=== PATIENT | female | born 1985 | race Caucasian/White ===

== ENCOUNTER → 2017-11-24 18:32 | Outpatient (CLI) | payer OTHER, SELFPAY ==
[2017-11-28 11:07] LABS: HPV APTIMA, High Risk Negative (Negative)
== END ==
PROVIDERS: Visit Provider Nurse Practitioner Women's Health
DX: Z12.4 Encounter for screening for malignant neoplasm of cervix (principal)
CPT/HCPCS: 88175; G0145

== ENCOUNTER → 2017-12-01 14:16 | Outpatient (CLI) | payer OTHER, SELFPAY ==
[2017-12-01 15:45] LABS: Thyroid Stim Hormone (TSH) 0.99 uIU/mL (0.358-3.74)
[2017-12-02 08:46] LABS: Progesterone Level 8.48 ng/mL (See Comment)
== END ==
PROVIDERS: Visit Provider Nurse Practitioner Women's Health
DX: N97.0 Female infertility associated with anovulation (principal)
CPT/HCPCS: 36415; 84144; 84443

== ENCOUNTER → 2018-03-12 09:24 | Outpatient (CLI) | payer OTHER, SELFPAY ==
[2018-03-12 10:13] LABS: Absolute Lymphocyte Count 2.28 X10^3/ul (0.83-4.51); Absolute Neutrophil Count 11.1 X10^3/uL (2.0-7.7); Basophil# 0.03 X10^3/uL; Basophil% 0.2 % (0-1); Eosinophil# 0.19 X10^3/uL; Eosinophils% 1.3 % (0-5); Hematocrit 41.7 % (37-47); Hemoglobin 14.2 g/dl (12.0-15.0); Lymphocyte # 2.28 X10^3/ul (4.0); Lymphocyte % 15.5 % (19-41); Mean Corp Hgb Conc 34.1 g/gl (32-36); Mean Corpuscular Hgb 31.4 pg (27.0-32.0); Mean Corpuscular Volume 92.3 fL (81-99); Monocyte% 6.8 % (0-10); Neutrophil # 11.13 X10^3/uL (2.7-7.7); Neutrophil % 75.7 % (47-70); Platelet Count 203 K/mm3 (150-450); RBC Distribution Width SD 39.7 fl (35.1-43.9); Red Blood Count 4.52 M/mm3 (4.2-5.4); White Blood Count 14.7 K/mm3 (4.4-11.0)
[2018-03-12 10:16] LABS: POSITIVE COUNT NO; POSITIVE DIFFERENTIAL NO; POSITIVE MORPHOLOGY NO
[2018-03-12 11:21] LABS: HIV - WCH Non-Reactive (Nonreactive); Rubella IgG 13.2 IU/mL
[2018-03-13 09:29] LABS: HEPATITIS B SURFACE AG Negative (Negative)
[2018-03-19 03:58] LABS: Rapid Plasmin Reagin (RPR) NONREACTIVE (NONREACTIVE)
== END ==
PROVIDERS: Family Provider Family Medicine; PCP Family Medicine; Visit Provider Obstetrics & Gynecology
DX: O09.511 Supervision of elderly primigravida, first trimester (principal); Z34.90 Encounter for supervision of normal pregnancy, unspecified, unspecified trimester; Z3A.00 Weeks of gestation of pregnancy not specified
CPT/HCPCS: 36415; 85025; 86592; 86703; 86762; 86850; 86900; 87340

== ENCOUNTER → 2018-03-12 16:35 | Outpatient (CLI) | payer OTHER, SELFPAY ==
[2018-03-12 18:34] LABS: Chlamydia Trachomatis by PCR Negative (Negative); Neisserai gonorrhoeae by PCR Negative (Negative); Probe Check PASS; Sample Adequacy Control PASS; Specimen Processing Control PASS
== END ==
PROVIDERS: Family Provider Family Medicine; PCP Family Medicine; Visit Provider Obstetrics & Gynecology
DX: Z34.90 Encounter for supervision of normal pregnancy, unspecified, unspecified trimester (principal)
CPT/HCPCS: 87086; 87088; 87491; 87591

== ENCOUNTER → 2018-04-21 13:54 | Outpatient (CLI) | payer OTHER, SELFPAY ==
--- NOTE | 2018-04-21 14:11 | US_ITS ---
STUDY: SECOND AND THIRD TRIMESTER OBSTETRICAL ULTRASOUND - LIMITED REASON FOR EXAM: Female, 32 years old. Routine survey. LMP: January 07, 2018. PRIOR ULTRASOUND: None. TECHNIQUE: Transabdominal ultrasound evaluation was performed. FINDINGS: There is a single intrauterine fetus. The fetus is in a variable presentation. There is demonstrated cardiac activity with a heart rate of 129 bpm. There is a normal amniotic fluid volume. The largest amniotic fluid pocket measures 4.9 cm x 2.5 cm. The amniotic fluid index (KWASI) is normal. The placenta is anterior and low lying but not previa in location. The tip of the placenta lies 1.8 cm from the os. There are Grade 0 placental changes. The cervix measures 3.5 cm in length. BIOMETRY: BPD: 2.8 cm: 15 weeks, 0 days HC: 10.13 cm: 14 weeks, 6 days AC: 8.49 cm: 14 weeks, 6 days FL: 1.41 cm: 14 weeks, 2 days Age by LMP: 14 weeks, 6 days. JAY by LMP: October 14, 2018. age by current US: 14 weeks, 6 days. JAY by current US: October 14, 2018. Estimated weight: 100 grams, +/- 50 grams, 17 percentile. The uterus measures 15.3 cm x 12.3 cm by 6.7 cm. 2 fibroids are seen. There is a pedunculated fibroid measuring 7.5 cm x 6.8 cm x 6.1 cm. There is also evidence of a 2.2 cm x 2.8 cm x 1.7 cm fibroid within the myometrium. The right ovary measures 3.3 cm x 1.6 cm x 2.8 cm. The left ovary measures 4 cm x 1.9 cm x 2.2 cm. Within it, there is a 1.8 cm x 1.9 cm x 1.7 cm dominant follicle. US/OB Limited With Biometrics IMPRESSION: Single live uterine gestation with a mean gestational age of 14 weeks and 6 days. Low-lying placenta. The tip of the placenta lies 1.8 cm proximal to the os. Enlarged uterus with uterine fibroids as described. Small follicle in the left ovary. Electronically Signed: Umesh Garcia MD at 15:53 EDT Tel [phone], Service support ,
== END ==
PROVIDERS: Family Provider Family Medicine; PCP Family Medicine; Referring Provider Obstetrics & Gynecology; Visit Provider Obstetrics & Gynecology
DX: Z36.9 Encounter for antenatal screening, unspecified (principal); O44.42 Low lying placenta NOS or without hemorrhage, second trimester; O34.12 Maternal care for benign tumor of corpus uteri, second trimester; D25.9 Leiomyoma of uterus, unspecified; O34.82 Maternal care for other abnormalities of pelvic organs, second trimester; N83.02 Follicular cyst of left ovary; Z3A.14 14 weeks gestation of pregnancy
CPT/HCPCS: 36415; 76816; 87070; 87077; 87106; 87205

== ENCOUNTER → 2018-07-16 11:56 | Outpatient (CLI) | payer BC, SELFPAY ==
[2018-07-16 11:08] VITALS: BMI 30.4
[2018-07-16 13:11] LABS: Absolute Neutrophil Count 15.2 X10^3/uL (2.0-7.7); Basophil# 0.03 X10^3/uL; Basophil% 0.2 % (0-1); Eosinophil# 0.22 X10^3/uL; Eosinophils% 1.2 % (0-5); Hematocrit 37.7 % (37-47); Hemoglobin 12.2 g/dl (12.0-15.0); Lymphocyte % 10.7 % (19-41); Mean Corp Hgb Conc 32.4 g/gl (32-36); Mean Corpuscular Hgb 30.7 pg (27.0-32.0); Mean Corpuscular Volume 94.7 fL (81-99); Mean Platelet Vol. 11.8 fl (6.2-12.0); Monocyte# 0.96 X10^3/uL; Monocyte% 5.1 % (0-10); Neutrophil # 15.21 X10^3/uL (2.7-7.7); Neutrophil % 81.4 % (47-70); POSITIVE COUNT NO; POSITIVE DIFFERENTIAL NO; POSITIVE MORPHOLOGY NO; Platelet Count 151 K/mm3 (150-450); RBC Distribution Width CV 13.5 % (11.6-14.6); RBC Distribution Width SD 46.9 fl (35.1-43.9); Red Blood Count 3.98 M/mm3 (4.2-5.4); White Blood Count 18.7 K/mm3 (4.4-11.0)
[2018-07-16 13:31] LABS: Glucose Challenge Gest 1H 50g 120 mg/dL (70-140)
== END ==
PROVIDERS: Family Provider Family Medicine; PCP Family Medicine; Referring Provider Obstetrics & Gynecology; Visit Provider Obstetrics & Gynecology
DX: O09.529 Supervision of elderly multigravida, unspecified trimester (principal); Z3A.00 Weeks of gestation of pregnancy not specified
CPT/HCPCS: 36415; 82950; 85025

== ENCOUNTER 2018-07-24 22:54 | Emergency (ER) | payer BC, SELFPAY ==
[2018-07-16 11:08] VITALS: BMI 30.4
[2018-07-24 22:55] VITALS: BP 127/72; PULSE 127; RESP 16; TEMP 37.1; O2SAT 96; BMI 29.9
[2018-07-24] MEDS: 0.9% Normal Saline 1,000 ML 1000 ML IV (23:27)
[2018-07-24] MEDS: proMETHazine 25 MG/ML Syringe 6.25 MG IV (23:27)
--- NOTE | 2018-07-24 23:47 | ED.VISSUMM ---
- ER Visit Summary Date of Service: 07/24/18 Chief Complaint: Nausea, vomiting, diarrhea History of Present Illness: The patient is a 33 F who is 28 weeks , , follows with Dr. Villalta. Presents today with 24 hours of nausea, vomiting, and diarrhea. This is nonbloody. She tried Phenergan and I gave her some relief. She has some chills and sweats. Denies fevers. She does have some diffuse abdominal pain and sometimes has a needlelike pain near her umbilicus for the past 2 days. Denies vaginal bleeding or discharge. She does have good movements. Family members had viral symptoms and at least one person had diarrhea. Of note, the patient has a clotting disorder and takes Lovenox. Physical Examination: Initial heart rate 127 and blood pressure 127/72. Afebrile other vitals normal. Patient nontoxic and in no acute distress. Alert and oriented. Heart tachycardic but regular. Lungs clear. Abdomen gravid but soft and nontender. Back nontender. Skin appears normal. Test Results: heart tones 140. Labs and urinalysis pending. Emergency Department Course and Treatment: Patient treated with IV fluids and Phenergan. I reevaluated the patient shortly after her fluids were started. Repeat heart rate was 107. heart tones were acceptable. Patient will be observed in the ED and reevaluated. We will check labs and a urine. Oncoming physician will recheck the patient. If the patient is doing well and everything looks okay, she can be discharged for outpatient follow-up. Stay hydrated. Brat diet discharge. Continue Phenergan. Add Imodium. Return for any new or worsening issues. Treatment Plan: As above Disposition: Pending further evaluation Impression: 1. Nausea, vomiting, diarrhea 2. This note was generated with [employer] software. It may contain incorrect words, spelling, and punctuation that were not noted in review of the chart prior to signing ED Disposition - Plan for ED Patient: Chief Complaint: Nausea/Vomiting/Diarrhea Referrals: Rony Ibarra MD [Primary Care Provider] -
[2018-07-24 23:48] LABS: Absolute Lymphocyte Count 0.95 X10^3/ul (0.83-4.51); Absolute Neutrophil Count 17.7 X10^3/uL (2.0-7.7); Basophil# 0.02 X10^3/uL; Basophil% 0.1 % (0-1); Eosinophil# 0.01 X10^3/uL; Hematocrit 39.9 % (37-47); Hemoglobin 13.6 g/dl (12.0-15.0); Lymphocyte # 0.95 X10^3/ul (4.0); Lymphocyte % 4.7 % (19-41); Mean Corp Hgb Conc 34.1 g/gl (32-36); Mean Corpuscular Hgb 31.6 pg (27.0-32.0); Mean Corpuscular Volume 92.6 fL (81-99); Mean Platelet Vol. 11.9 fl (6.2-12.0); Monocyte# 1.19 X10^3/uL; Monocyte% 5.9 % (0-10); Neutrophil # 17.74 X10^3/uL (2.7-7.7); Neutrophil % 88.2 % (47-70); Platelet Count 152 K/mm3 (150-450); RBC Distribution Width CV 13.2 % (11.6-14.6); RBC Distribution Width SD 43.6 fl (35.1-43.9); Red Blood Count 4.31 M/mm3 (4.2-5.4); White Blood Count 20.1 K/mm3 (4.4-11.0)
--- NOTE | 2018-07-24 23:51 | ED.DEP ---
ED Disposition - Plan for ED Patient: Chief Complaint: Nausea/Vomiting/Diarrhea Instructions: ED Diet Vomiting Diarrhea Prescriptions: Loperamide [Imodium] 2 mg PO Q4H PRN PRN #20 cap PRN Reason: Diarrhea Referrals: Naomi Villalta MD [STAFF PHYSICIAN] -
[2018-07-24 23:56] LABS: Anion Gap 10 (5-15); BUN 11 mg/dL (7-18); Calcium,Total 8.6 mg/dL (8.5-10.1); Chloride 105 mmol/L (98-107); Creatinine, Serum 0.58 mg/dL (0.55-1.02); EST Glomerular Filtration Rate 126 mL/min (>60); Est Glom Filt Rate - Afr Amer 152 mL/min (>60); Estimated Creatinine Clearance 116.91 ml/min; Glucose 87 mg/dL (74-106); Potassium 3.3 mmol/L (3.5-5.1); Sodium Level 135 mmol/L (136-145)
[2018-07-24 23:58] LABS: Bacteria 0 SEEN /hpf (None Seen); Red Blood Cells-Urine 0 SEEN /hpf (0-5)
[2018-07-25] MEDS: 0.9% Normal Saline 1,000 ML 1000 ML IV (00:01)
[2018-07-25 00:10] LABS: Color, Urine Amber (Yellow); Glucose, Dipstick Normal (Normal); Leukocyte Esterase-Dipstick 25 /ul (Negative); Nitrite-Dipstick Positive (Negative); Occult Blood-Urine 10 /ul (Negative); Protein-Dipstick 30 mg/dl (Negative); Urine Clarity Sl. Cloudy (Clear); Urine Urobilinogen 4 mg/dl (Normal)
[2018-07-25 00:24] LABS: Urine Bilirubin Dipstick 1 mg/dL (Negative)
[2018-07-25 00:25] LABS: Amorphous Sediment 1+; Ketone-Dipstick 150 mg/dl (Negative); Mucous, Urine 3+ /hpf (<or=2+); Squamous Epithelial Cells - UA 25-50 SEEN /hpf (5-10); White Blood Cells 0-5 SEEN /hpf (0-5)
[2018-07-25 00:25] LABS: POSITIVE COUNT NO; POSITIVE DIFFERENTIAL NO; POSITIVE MORPHOLOGY NO
[2018-07-25 01:45] VITALS: BP 105/72; PULSE 97; RESP 18; O2SAT 98
== END 2018-07-25 01:45 | disposition home or self-care (01) ==
PROVIDERS: Emergency Medicine; Emergency Provider Emergency Medicine; Family Provider Family Medicine; PCP Family Medicine
DX: O21.2 Late vomiting of pregnancy (principal); O99.89 Other specified diseases and conditions complicating pregnancy, childbirth and the puerperium; R19.7 Diarrhea, unspecified; O99.113 Other diseases of the blood and blood-forming organs and certain disorders involving the immune mechanism complicating pregnancy, third trimester; D68.61 Antiphospholipid syndrome; Z79.82 Long term (current) use of aspirin; Z79.01 Long term (current) use of anticoagulants; Z3A.28 28 weeks gestation of pregnancy
CPT/HCPCS: 80048; 81001; 85025; 96361; 96374; 99283; J7030

== ENCOUNTER 2018-09-09 13:50 | Observation (INO) | payer BC, SELFPAY ==
[2018-09-07 11:45] VITALS: BMI 30.7
[2018-09-09 13:50] VITALS: BP 122/98; PULSE 117; RESP 16; TEMP 36.3; O2SAT 94
--- NOTE | 2018-09-09 15:41 | ED.DCSUM_ITS ---
- ER Visit Summary Date of Service: 09/09/18 Chief Complaint: [] Persistent vomiting 8 months History of Present Illness: The patient is a 33 F [] who is 8 months , has had protracted and persistent vomiting throughout her , for the last 2 days she has noticed increasing vomiting despite the use of her Phenergan, no pain no fever no cough bowel movements have been limited her urine output has been normal no dysuria and again no pain in any part of her body, she does not have any history of any GI elements of the cause vomiting her is uncomplicated no vaginal bleeding or discharge she tried to call her SLUDGE CONTROL ATTENDANT's office they would not respond she indicates she came to the emergency department Physical Examination: [] 122/98 heart rate 120 afebrile General, no distress resting comfortably HEENT is generally unremarkable The neck is supple no adenopathy Cardiovascular, regular rate and rhythm Lungs, clear bilateral Abdomen, soft nontender, obviously nontender Extremities, no clubbing cyanosis or edema Neurologic, awake alert answering questions appropriately moving all 4 extremities Test Results: [] Emergency Department Course and Treatment: [] Given all the above screening labs are obtained IV fluids White count is 22 the rest of her chemistry and CBC panel generally unremarkable except her calcium is 15, potassium 3.0,, lipase 500 she has received IV fluids she continues states that she still feels nauseated does not feel that she would do well at home as she is concerned the nausea may recur I spoke with Dr. Gume Bruce her attending physician [facility] [employer], the plan is to admit SLUDGE CONTROL ATTENDANT with consultation to hospitalist discussed with hospitalist as well will see the patient Treatment Plan: [] Disposition: [] Admit stable Impression: [] Intractable vomiting, , electrolyte abnormalities, hypercalcemia, elevated lipase This note was generated with [employer] dictation software. It may contain incorrect words, spelling, and punctuation that were not noted in review of the chart prior to signing ED Disposition - Plan for ED Patient: Referrals: Care Physician,No Primary [NON-STAFF] -
[2018-09-09] MEDS: Ondansetron 4 MG/2 ML Vial IV (15:50)
[2018-09-09 16:00] VITALS: BP 126/99; PULSE 105; RESP 18; O2SAT 92
[2018-09-09] MEDS: Lactated Ringers 1,000 ML 999 ML IV ×2 (16:00→16:11)
[2018-09-09 16:02] LABS: Mucous, Urine 0 SEEN /hpf (<or=2+); Red Blood Cells-Urine 0 SEEN /hpf (0-5)
[2018-09-09 16:04] LABS: Color, Urine Amber (Yellow); Glucose, Dipstick Normal (Normal); Leukocyte Esterase-Dipstick 25 /ul (Negative); Nitrite-Dipstick Negative (Negative); Occult Blood-Urine 10 /ul (Negative); Protein-Dipstick 30 mg/dl (Negative); Urine Clarity Sl. Cloudy (Clear); Urine Urobilinogen 1 mg/dl (Normal)
[2018-09-09 16:05] LABS: Ketone-Dipstick 150 mg/dl (Negative); Urine Bilirubin Dipstick 1 mg/dL (Negative)
[2018-09-09] MEDS: Mag Hydrox/Al Hydrox/Simeth 30 ML UDC PO ×2 (16:11→20:59)
[2018-09-09 16:14] LABS: Squamous Epithelial Cells - UA 10-25 SEEN /hpf (5-10)
[2018-09-09 16:15] LABS: Bacteria 1+ /hpf (None Seen); White Blood Cells 0-5 SEEN /hpf (0-5)
[2018-09-09 16:26] LABS: AST(SGOT) 24 U/L (15-37); Alanine Aminotransfer ALT/SGPT 24 U/L (13-56); Albumin, Serum 3.1 g/dL (3.2-5.0); Alkaline Phosphatase 155 U/L (45-117); Anion Gap 12 (5-15); BUN 12 mg/dL (7-18); BUN/Creat Ratio 12.3 RATIO (10-20); Bilirubin, Direct 0.14 mg/dL (0.00-0.30); Calcium,Total 14.5 mg/dL (8.5-10.1); Chloride 93 mmol/L (98-107); Creatinine, Serum 0.97 mg/dL (0.55-1.02); EST Glomerular Filtration Rate 69 mL/min (>60); Est Glom Filt Rate - Afr Amer 84 mL/min (>60); Globulin 4.1 g/dL (2.2-4.2); Glucose 97 mg/dL (74-106); Lipase 486 U/L (73-393); Protein, Total 7.2 g/dL (6.4-8.2); Sodium Level 137 mmol/L (136-145)
--- NOTE | 2018-09-09 16:26 | ED.RN ---
CALCIUM 14.[address] LAB. DR BAKERED AWARE
[2018-09-09 16:28] LABS: Absolute Lymphocyte Count 3.55 X10^3/ul (0.83-4.51); Absolute Neutrophil Count 16.6 X10^3/uL (2.0-7.7); Basophil# 0.03 X10^3/uL; Basophil% 0.1 % (0-1); Eosinophil# 0.12 X10^3/uL; Eosinophils% 0.5 % (0-5); Hematocrit 45.5 % (37-47); Hemoglobin 14.6 g/dl (12.0-15.0); Lymphocyte # 3.55 X10^3/ul (4.0); Lymphocyte % 15.8 % (19-41); Mean Corp Hgb Conc 32.1 g/gl (32-36); Mean Corpuscular Hgb 29.9 pg (27.0-32.0); Mean Platelet Vol. 13.8 fl (6.2-12.0); Monocyte# 1.96 X10^3/uL; Monocyte% 8.7 % (0-10); Neutrophil # 16.62 X10^3/uL (2.7-7.7); Neutrophil % 74.3 % (47-70); Platelet Count 216 K/mm3 (150-450); Red Blood Count 4.89 M/mm3 (4.2-5.4); White Blood Count 22.4 K/mm3 (4.4-11.0)
[2018-09-09 16:29] LABS: Differential Indicated SCAN CRITERIA MET; POSITIVE COUNT NO; POSITIVE DIFFERENTIAL YES; POSITIVE MORPHOLOGY NO
[2018-09-09] MEDS: Cyanocobalamin 500 MCG Tablet PO (16:34)
[2018-09-09] MEDS: Pyridoxine HCl 100 MG Tablet PO (16:34)
[2018-09-09 17:13] LABS: Platelet Estimate ADEQUATE (ADEQ); Red Cell Morphology NORM C+C NORMAL (NORM C&C)
[2018-09-09 18:01] VITALS: BP 123/91; PULSE 93; RESP 16; O2SAT 98
--- NOTE | 2018-09-09 18:20 | PCM.CONS.GEN ---
Problem List (1) Intractable vomiting Status: Acute (2) Hypokalemia Status: Acute (3) Elevated lipase Status: Acute Reason for Consult Date of Consultation: 09/09/18 Reason for Consultation: Intractable nausea vomiting History of Present Illness: The patient is a 33 year old F with 36 weeks of , primigravida came to ED if for intractable nausea and vomiting for last 4 days. Initially, for first 2 days it was 3-4 times daily, bilious in nature large amount but for last 2 days it got worsened every 3-4 hours. Patient is very dehydrated. She also feels generalized abdominal discomfort, epigastric region and upper back and she feels probably from intractable vomiting. Lipase is elevated, 486. She denies sharp abdominal pain. LFT are within normal limit except alkaline phosphatase 155. Calcium 14.5, K3.0. Anion gap 12, CO2 32. She denies previous history of pancreatitis, liver or gallbladder disease. She denies alcohol drinking or history of gallstones. Past Medical History Past Medical History (Chronic Problems): Chronic Problems (Last Reviewed 09/07/18 @ 11:45 by Melissa Graham) Abnormal blood coagulation profile (Chronic) positive anticardiolipin antibody, recommendlovenox and baby ASA and MFM consult due to postiive antibody but no symptoms of syndrome Medical History: Medical History (Last Reviewed 09/07/18 @ 11:45 by Melissa Graham) Heartburn (Acute) R12 zantac, failed pepcid Abnormal Pap smear of cervix R87.619 Anxiety and depression F41.9, F32.9 Allergies welbutrin Allergy (Mild, Uncoded 09/09/18 13:54) Other Home Medications: Ambulatory Orders Medication Instructions Recorded enoxaparin 40 mg/0.4 mL 40 mg SC DAILY 06/03/18 subcutaneous syringe Aspirin [Aspir-Low] 81 mg PO DAILY 07/24/18 Famotidine [Pepcid] 40 mg PO DAILY 07/24/18 Fluoxetine [Prozac] 10 mg PO DAILY 07/24/18 Acetaminophen [Tylenol Extra 500 mg PO Q6H PRN PRN 09/09/18 Strength] Calcium Carbonate [Tums] 500 mg PO Q6H PRN PRN 09/09/18 Pnv No.95/Ferrous Fum/Folic AC 1 each PO DAILY 02/14/19 [ Formula] proMETHazine tablet [Phenergan 12.5 mg PO Q6H PRN PRN 09/09/18 tablet] Surgical History: Surgical History (Last Reviewed 09/07/18 @ 11:45 by Melissa Graham) pre cancerous removal of skin Smoking Status: Never smoker - *Family History Paternal Family History: Family History (Last Reviewed 09/07/18 @ 11:45 by Melissa Graham) Unknown Cancer History Items: No pertinent history - Of pancreatitis or bowel disease in father or mother, - Review of Systems Constitutional: Reports: Weakness. Denies: Chills, Fever, Weight Change HEENT: Denies: Head Aches, Sinus Congestion, Sinus Drainage Cardiovascular: Denies: Chest Pain, Palpitations Respiratory: Denies: Cough, Shortness of breath at rest, Sputum production Gastrointestinal: Reports: Nausea, Vomiting, - - Abdominal discomfort. Denies: Abdominal Pain Genitourinary: Denies: Dysuria Musculoskeletal: Reports: Back Pain. Denies: Joint Pain, Joint Tenderness Skin: Reports: Dryness. Denies: Jaundice, Rash, Wounds Neurological: Denies: Numbness, Tingling, Focal weakness Psychiatric: Denies: Anxiety, Depression, Homicidal Ideations, Suicidal Ideations Hematologic/ Lymphatic: Denies: Easy Bruising, Easy Bleeding - Physical Exam General: Alert, Oriented x3, Cooperative HEENT: Atraumatic, PERRLA, EOMI, Normocephalic Oral: No Gingival or Mucosal Lesions/ Ulcerations, Dry Mucosa Neck: Supple, No JVD, Negative Carotid Bruits Lungs: Clear to auscultation, Normal air movement, No rhonchi, No wheeze, No rales Cardiovascular: Regular rate, Regular Rhythm, Normal S1, Normal S2, No murmurs Abdomen: Bowel Sounds Present, Soft, - - 36 weeks fundal size. Hard to examine abdominal tenderness in view of advanced . Does not seem epigastric tenderness. Extremities: No edema, Capillary Refill Less than 3 Seconds Skin: No rashes, No breakdown Musculoskeletal: No Tenderness to Palpation of Joints or Extremities Neurological: Cranial nerves II-XII grossly intact Psych/Mental Status: Normal Affect, Appropriate Vital Signs Temp Pulse Resp BP Pulse Ox 97.4 F L 93 16 123/91 H 98 09/09/18 13:50 09/09/18 18:01 09/09/18 18:01 09/09/18 18:01 09/09/18 18:01 Oxygen Delivery Method Room Air Weight: 175 lb Body Mass Index (BMI) 30.0 Laboratory Tests Past 24 Hrs 09/09/18 09/09/18 09/09/18 14:20 14:20 15:50 WBC 22.4 H RBC 4.89 Hgb 14.6 Hct 45.5 MCV 93.0 MCH 29.9 MCHC 32.1 RDW 13.0 RDW Differential 44.0 H Plt Count 216 MPV 13.8 H Immature Gran % (Auto) 0.600 Neut % (Auto) 74.3 H Lymph % (Auto) 15.8 L [place] % (Auto) 8.7 Eos % (Auto) 0.5 Baso % (Auto) 0.1 Absolute Neuts (auto) 16.6 H Absolute Lymphs (auto) 3.55 Total Counted Not Reportable Differential Comment Diff Path Review May foll Platelet Estimate ADEQUATE RBC Morphology NORM C+C Sodium 137 Potassium 3.0 L Chloride 93 L Carbon Dioxide 32.0 Anion Gap 12 BUN 12 Creatinine 0.97 Estim Creat Clear Calc 69.90 Est GFR (MDRD) Af Amer 84 Est GFR (MDRD) Non-Af 69 BUN/Creatinine Ratio 12.3 Glucose 97 Calcium 14.5 H* Total Bilirubin 0.40 Direct Bilirubin 0.14 AST 24 ALT 24 Alkaline Phosphatase 155 H Total Protein 7.2 Albumin 3.1 L Globulin 4.1 Lipase 486 H Urine Color Roro Urine Clarity Sl. Cloudy Urine pH 5.0 Ur Specific [place] 1.030 Urine Protein 30 H Urine Glucose (UA) Normal Urine Ketones 150 H Urine Occult Blood 10 H Urine Nitrite Negative Urine Bilirubin 1 H Urine Urobilinogen 1 H Ur Leukocyte Esterase 25 H Urine RBC 0 SEEN Urine WBC 0-5 SEEN Ur Squamous Epith Cells 10-25 SEEN Urine Bacteria 1+ Urine Mucus 0 SEEN Assessment/Plan All Active Problems (Last Reviewed 09/07/18 @ 11:45 by Melissa Graham) Intractable vomiting (Acute) Hypokalemia (Acute) Elevated lipase (Acute) Uterine fibroid complicating care, baby not yet delivered (Acute) (Acute) , high-risk, maternal age 35+ multigravida (Acute) Heartburn (Acute) The patient is a 33 year old F with 36 weeks of , primigravida came to ED if for intractable nausea and vomiting for last 4 days. Initially, for first 2 days it was 3-4 times daily, bilious in nature large amount but for last 2 days it got worsened every 3-4 hours. She also had diarrhea about a week ago but is resolved now. Patient is very dehydrated. She also feels generalized abdominal discomfort, epigastric region and upper back and she feels probably from intractable vomiting. Lipase is elevated, 486. She denies sharp abdominal pain. LFT are within normal limit except alkaline phosphatase 155. Calcium 14.5, K3.0. Anion gap 12, CO2 32. Elevated phosphate probably from bowel or placental origin. She denies previous history of pancreatitis, liver or gallbladder disease. She denies alcohol drinking or history of gallstones. The hospitalist has been consulted for management of electrolyte imbalance, nausea vomiting and concern of pancreatitis 1. Intractable nausea and vomiting with concern of acute pancreatitis: Patient is being admitted in OB floor, [facility]. I think, elevated lipase is probably from bowel origin from nausea and vomiting. Patient had 3 L of IV fluid in ER and continue Ringer lactate at 150 mill per hour. Replace electrolytes. Repeat LFT tomorrow morning. Repeat lipase tomorrow morning. Right upper quadrant sonogram ordered although probably hard to see pancreas in view of [address]-month-old . CT scan is contraindicated. Managed conservatively. 2. Hypokalemia: Potassium is being replaced. Repeat potassium, magnesium and phosphorus. 3. Acute hypovolemia with dehydration secondary to vomiting: Replace IV fluid as mentioned above 4. Primigravida with 36 weeks of : Management as per laboratory mechanic helper. 5. History of antiphospholipid syndrome: Patient has history of positive anticardiolipin. On Lovenox; dosing as per laboratory mechanic helper. Laboratory Results 09/09/18 14:20: WBC 22.4 H, RBC 4.89, Hgb 14.6, Hct 45.5, MCV 93.0, MCH 29.9, MCHC 32.1, RDW 13.0, RDW Differential 44.0 H, Plt Count 216, MPV 13.8 H, Immature Gran % (Auto) 0.600, Neut % (Auto) 74.3 H, Lymph % (Auto) 15.8 L, [place] % (Auto) 8.7, Eos % (Auto) 0.5, Baso % (Auto) 0.1, Absolute Neuts (auto) 16.6 H, Absolute Lymphs (auto) 3.55, Total Counted Not Reportable, Differential Comment , Diff Path Review May foll, Platelet Estimate ADEQUATE, RBC Morphology NORM C+C 09/09/18 14:20: Sodium 137, Potassium 3.0 L, Chloride 93 L, Carbon Dioxide 32.0, Anion Gap 12, BUN 12, Creatinine 0.97, Estim Creat Clear Calc 69.90, Est GFR (MDRD) Af Amer 84, Est GFR (MDRD) Non-Af 69, BUN/Creatinine Ratio 12.3, Glucose 97, Calcium 14.5 H*, Total Bilirubin 0.40, Direct Bilirubin 0.14, AST 24, ALT 24, Alkaline Phosphatase 155 H, Total Protein 7.2, Albumin 3.1 L, Globulin 4.1, Lipase 486 H 09/09/18 15:50: Urine Color Roro, Urine Clarity Sl. Cloudy, Urine pH 5.0, Ur Specific [place] 1.030, Urine Protein 30 H, Urine Glucose (UA) Normal, Urine Ketones 150 H, Urine Occult Blood 10 H, Urine Nitrite Negative, Urine Bilirubin 1 H, Urine Urobilinogen 1 H, Ur Leukocyte Esterase 25 H, Urine RBC 0 SEEN, Urine WBC 0-5 SEEN, Ur Squamous Epith Cells 10-25 SEEN, Urine Bacteria 1+, Urine Mucus 0 SEEN [] Code Visit Inpatient E&M: 68157 Init Hosp L3
[2018-09-09 18:43] VITALS: BMI 29.6
--- NOTE | 2018-09-09 19:01 | US_ITS ---
STUDY: ABDOMINAL ULTRASOUND - RIGHT UPPER QUADRANT REASON FOR VISIT: Female, 33 years old. Abdominal pain, nausea TECHNIQUE: Ultrasound evaluation of the right upper quadrant was performed with real-time and static bryan-scale imaging. TECHNICAL QUALITY: Adequate. COMPARISON: None. FINDINGS: Liver: The liver measures 14.2 cm. There is normal echogenicity of the liver. The bile ducts are within normal limits. There is hepatic color flow. The direction of portal flow is hepatopetal. There is no demonstrated mass lesion. Gallbladder: Normal distended gallbladder. The gallbladder wall measures 3 mm. There is a negative sonographic Mitchell's sign. There is no pericholecystic fluid. There are no gallstones. Common Bile Duct (C.B.D.): The common bile duct measures 3 mm. Pancreas: Limited visualization of the pancreas. Right Kidney: Normal size of the right kidney. The right kidney measures 10.8 x 5.5 x 4.8 cm. Normal renal cortex. The right cortex measures 1.4 cm. There is no demonstrated renal mass or cyst. Focal 2 mm echogenic cortical focus without shadowing, possible vascular calcification. There is no right hydronephrosis. US/Abdomen Limited IMPRESSION: Normal right upper quadrant ultrasound examination. Electronically Signed: Franco Carey DO at 22:43 EST Tel [phone], Service support ,
--- NOTE | 2018-09-09 19:01 | US_ITS ---
STUDY: SECOND AND THIRD TRIMESTER OBSTETRICAL ULTRASOUND - LIMITED REASON FOR EXAM: Female, 33 years old. Nausea and vomiting. LMP: 01/07/2018. PRIOR ULTRASOUND: 04/21/2018. TECHNIQUE: Transabdominal TECHNICAL QUALITY: Adequate. FINDINGS: There is a single intrauterine fetus. The fetus is in a breech presentation. There is demonstrated cardiac activity with a heart rate of 135 bpm. There is a normal amniotic fluid volume. The largest amniotic fluid pocket measures 5 cm. The amniotic fluid index (KWASI) is 17.4 cm. The placenta is anterior in location and is not low lying. There are Grade 2 placental changes. The cervix measures 3 cm in length. BIOMETRY: BPD: 85 mm: 34 weeks, 3 days HC: 318 mm: 35 weeks, 6 days AC: 305 mm: 34 weeks, 1 days FL: 66 mm: 34 weeks, 1 days Age by LMP: 35 weeks, 0 days. JAY by LMP: 10/14/2018. age by prior US: 14 weeks, 6 days. JAY by prior US: 10/14/2018. age by current US: 34 weeks, 5 days. JAY by current US: 10/16/2018. Estimated weight: 2388 grams, +/- 349 grams, 27 percentile. Gender: Indeterminant. There again is a mass in the uterus measuring about 7.6 x 6.4 x 5.2 cm consistent with uterine fibroid. The other smaller fibroid is not seen at this time.. US/OB Limited With Biometrics IMPRESSION: Single live intrauterine fetus in breech presentation as seen at the end of the examination with an estimated gestational age of 34 weeks and 5 days. The JAY is 10/16/2018. Normal KWASI. Uterine fibroid. Electronically Signed: Prabhakar Cordero MD at 22:20 EST Tel , Service support ,
[2018-09-09 19:43] LABS: Magnesium 1.4 mg/dL (1.6-2.6)
[2018-09-09 19:50] LABS: Phosphorus 3.6 mg/dL (2.5-4.9)
[2018-09-09 20:04] LABS: Amphetamine Urine VISTA NEGATIVE (<1000 ng/mL); Barbiturate Urine VISTA NEGATIVE (< 200 ng/mL); Benzodiazepine Urine VISTA NEGATIVE (< 200 ng/mL); Cocaine Urine VISTA NEGATIVE (< 300 ng/mL); Ecstacy Urine VISTA NEGATIVE (< 500 ng/mL); Methadone Urine VISTA NEGATIVE (< 300 ng/mL); PCP Urine VISTA NEGATIVE (< 25 ng/mL); THC Urine VISTA NEGATIVE (< 50 ng/mL); Vista UDS pH Range 7
[2018-09-09] MEDS: Potassium Chloride 10mEq/100mL 10 MEQ/100 ML IV.SOLN. 100 MEQ IV BOLUS ×2 (20:24→22:04)
[2018-09-09] MEDS: 0.9% Normal Saline 1,000 ML 150 ML IV (20:25)
--- NOTE | 2018-09-09 20:36 | NURSING ---
pt arrived to unit with IV access in place
[2018-09-09] MEDS: Enoxaparin 40 MG/0.4 ML Syringe SC (22:02)
[2018-09-09 22:08] LABS: Anion Gap 10 (5-15); BUN 13 mg/dL (7-18); BUN/Creat Ratio 15.3 RATIO (10-20); Calcium,Total 12.5 mg/dL (8.5-10.1); Chloride 96 mmol/L (98-107); Creatinine, Serum 0.85 mg/dL (0.55-1.02); EST Glomerular Filtration Rate 81 mL/min (>60); Est Glom Filt Rate - Afr Amer 98 mL/min (>60); Estimated Creatinine Clearance 79.77 ml/min; Glucose 84 mg/dL (74-106); Potassium 3.3 mmol/L (3.5-5.1); Sodium Level 139 mmol/L (136-145)
[2018-09-09] MEDS: proMETHazine 25 MG/ML Syringe 12.5 MG IV (23:03)
[2018-09-10 00:10] LABS: Magnesium 1.5 mg/dL (1.6-2.6)
[2018-09-10] MEDS: 0.9% Normal Saline 1,000 ML 150 ML IV ×2 (02:59→09:38)
[2018-09-10 06:36] LABS: ALB/GLOB Ratio 0.7 RATIO (0.9-2.4); AST(SGOT) 17 U/L (15-37); Alanine Aminotransfer ALT/SGPT 20 U/L (13-56); Albumin, Serum 2.4 g/dL (3.2-5.0); Alkaline Phosphatase 117 U/L (45-117); Anion Gap 10 (5-15); BUN 14 mg/dL (7-18); BUN/Creat Ratio 17.2 RATIO (10-20); Calcium,Total 11.2 mg/dL (8.5-10.1); Chloride 100 mmol/L (98-107); Creatinine, Serum 0.81 mg/dL (0.55-1.02); EST Glomerular Filtration Rate 85 mL/min (>60); Est Glom Filt Rate - Afr Amer 103 mL/min (>60); Estimated Creatinine Clearance 83.71 ml/min; Globulin 3.3 g/dL (2.2-4.2); Glucose 77 mg/dL (74-106); Lipase 624 U/L (73-393); Potassium 3.2 mmol/L (3.5-5.1); Protein, Total 5.7 g/dL (6.4-8.2); Sodium Level 140 mmol/L (136-145)
[2018-09-10 06:55] LABS: Absolute Lymphocyte Count 3.96 X10^3/ul (0.83-4.51); Absolute Neutrophil Count 14.1 X10^3/uL (2.0-7.7); Basophil# 0.04 X10^3/uL; Basophil% 0.2 % (0-1); Eosinophil# 0.18 X10^3/uL; Eosinophils% 0.9 % (0-5); Hematocrit 37.9 % (37-47); Hemoglobin 12.2 g/dl (12.0-15.0); Lymphocyte # 3.96 X10^3/ul (4.0); Lymphocyte % 20.1 % (19-41); Mean Corp Hgb Conc 32.2 g/gl (32-36); Mean Corpuscular Hgb 30.2 pg (27.0-32.0); Mean Corpuscular Volume 93.8 fL (81-99); Mean Platelet Vol. 12.8 fl (6.2-12.0); Monocyte# 1.38 X10^3/uL; Neutrophil # 14.06 X10^3/uL (2.7-7.7); Neutrophil % 71.3 % (47-70); Platelet Count 164 K/mm3 (150-450); RBC Distribution Width CV 13.1 % (11.6-14.6); RBC Distribution Width SD 44.3 fl (35.1-43.9); Red Blood Count 4.04 M/mm3 (4.2-5.4); White Blood Count 19.7 K/mm3 (4.4-11.0)
[2018-09-10 06:58] LABS: Magnesium 2.3 mg/dL (1.6-2.6)
[2018-09-10 06:59] LABS: Differential Indicated SCAN CRITERIA MET; POSITIVE COUNT NO; POSITIVE DIFFERENTIAL NO; POSITIVE MORPHOLOGY YES
--- NOTE | 2018-09-10 08:04 | US_ITS ---
STUDY: OBSTETRICAL ULTRASOUND - BIOPHYSICAL PROFILE REASON FOR EXAM: Female, 33 years old. well-being. LMP: January 07, 2018 PRIOR ULTRASOUND: Comparison is made with prior study dated September 09, 2018. TECHNIQUE: Transabdominal TECHNICAL QUALITY: Adequate. FINDINGS: There is a single intrauterine fetus. The fetus is in a breech and variable presentation. There is demonstrated cardiac activity with a heart rate of 132 bpm. There is a normal amniotic fluid volume. The largest amniotic fluid pocket measures 5.3 cm x 8.1 cm. The amniotic fluid index (KWASI) is 21.3 cm. The placenta is anterior in location and is not low lying. There are Grade 2 placental changes. Age by LMP: 35 weeks, 1 days. JAY by LMP: October 14, 2018. age by prior US: 34 weeks, 5 days. JAY by prior US: October 16, 2018. Gender: Female BIOPHYSICAL PROFILE: Breathing Movements (FBM): 2 Gross Body Movements (GBM): 2 Tone (FT): 2 Amniotic Fluid Volume (AFV): 2 TOTAL SCORE: 8 / 8 US/Biophysical Profile IMPRESSION: Normal biophysical profile of 03/03. Electronically Signed: Umesh Garcia MD at 14:28 EST , Service support ,
--- NOTE | 2018-09-10 11:05 | HP.PCM_ITS ---
- Problem List (1) Intractable vomiting Status: Acute (2) Hypokalemia Status: Acute (3) Elevated lipase Status: Acute (4) Uterine fibroid complicating care, baby not yet delivered Status: Acute Comment: Low and posterior fibroid near cervix Growth US q4 wk and weekly NST at 32 week (5) Status: Acute Qualifiers: Weeks of gestation: 35 weeks Qualified Code(s): Z3A.35 - 35 weeks gestation of Comment: AFP- negative; anatomy US complete-recheck growth every 4 week. Weekly NSTs starting 2 weekly at 32 weeks. (6) Abnormal blood coagulation profile Status: Chronic Comment: positive anticardiolipin antibody, recommendlovenox and baby ASA and MFM consult due to postiive antibody but no symptoms of syndrome (7) , high-risk, maternal age 35+ multigravida Status: Acute Comment: PRR JAY 10/14/18 girl Ministerio growth us 36 weeks; 08/02/18 regrowth/anatomy consistent with dates- note 7cm fibroid re check and growth every 4 weeks weekly nst at 32 weeks - pt notified. (8) Heartburn Status: Acute Comment: zantac, failed pepcid History Date of Admission: 09/09/18 Final JAY: 10/14/18 Gestational age: 35 Weeks and 1 Days History of this : This is a 33 year-old, at 35 weeks gestational age presents with intractable nausea and vomiting x 2 days. she had diarrhea a week ago and no sick contacts. she denies any abdominal pain and no ZAVALETA BV no CP SOB . BPs are not elevated but her electorlytes are abnormal and her lipase was elevated. Medical History: Medical History (Last Reviewed 09/07/18 @ 11:45 by Melissa Graham) Heartburn (Acute) R12 zantac, failed pepcid Abnormal Pap smear of cervix R87.619 Anxiety and depression F41.9, F32.9 Surgical History: Surgical History (Last Reviewed 09/07/18 @ 11:45 by Melissa Graham) pre cancerous removal of skin Allergies welbutrin Allergy (Mild, Uncoded 09/09/18 13:54) Other Home Medications: Home Medications enoxaparin 40 mg/0.4 mL subcutaneous syringe 40 mg SC DAILY 06/03/18 Aspirin [Aspir-Low] 81 mg PO DAILY 07/24/18 Famotidine [Pepcid] 40 mg PO DAILY 07/24/18 Fluoxetine [Prozac] 10 mg PO DAILY 07/24/18 Acetaminophen [Tylenol Extra Strength] 500 mg PO Q6H PRN PRN 09/09/18 Calcium Carbonate [Tums] 500 mg PO Q6H PRN PRN 09/09/18 Pnv No.95/Ferrous Fum/Folic AC [ Formula] 1 each PO DAILY 09/09/18 proMETHazine tablet [Phenergan tablet] 12.5 mg PO Q6H PRN PRN 09/09/18 Smoking Status: Never smoker Alcohol: None Number of Fetus(es): 1 Heart Tracin moderate variability reactive no decelerations category I tracing Nambe: regular History Past Pregnancies: Past Pregnancies Delivery Date Name GA/Weeks Outcome Route Weight Infant Gender Labor Length Anesthesia Delivery Location Provider FOB Review of Systems Constitutional: Denies: Fever, Malaise Eyes: Denies: Blurred vision, Vision Change HEENT: Denies: Head Aches, Visual Changes Cardiovascular: Denies: Chest Pain, Palpitations Respiratory: Denies: Cough, Shortness of Breath, Wheezing Gastrointestinal: Reports: Diarrhea, Nausea, Vomiting. Denies: Abdominal Pain Genitourinary: Denies: Dysuria, Hematuria Musculoskeletal: Denies: Joint Pain, Muscle pain Skin: Denies: Lesions, Rash Neurological: Denies: Blurred vision, Focal weakness, Headaches Psychiatric: Denies: Anxiety, Depression Endocrine: Denies: Heat/ Cold Intolerance Hematologic/ Lymphatic: Denies: Easy Bruising, Easy Bleeding Physical Exam Vitals: Vital Signs Temp Pulse Resp BP Pulse Ox 97.4 F L 93 16 123/91 H 98 09/09/18 13:50 09/09/18 18:01 09/09/18 18:01 09/09/18 18:01 09/09/18 18:01 General: Alert, Cooperative, No apparent distress HEENT: Atraumatic, Normocephalic. Negative for: Thyromegaly, Lymphadenopathy Cardiovascular: Regular rate Lungs: Normal air movement Abdomen: Soft, Non Tender, Gravid Neurological: Deep Tendon Reflexes 2+/4 and Symmetrical, Neuro grossly intact. Negative for: Clonus GRAPH[employer] PRODUCTION SPECIALIST: Normal external genitalia. Negative for: Vulvar lesions Estimated gestational size: Appropriate for gestational size Presentation: Cephalic Assessment/Plan All Active Problems (Last Reviewed 09/07/18 @ 11:45 by Melissa Graham) Intractable vomiting (Acute) Hypokalemia (Acute) Elevated lipase (Acute) Uterine fibroid complicating care, baby not yet delivered (Acute) (Acute) , high-risk, maternal age 35+ multigravida (Acute) Heartburn (Acute) This is a 33 year-old, at 35 weeks gestational age presents with nausea and vomiting 1. admit to hospital for STO and consult hospitalist for elevated lipase and electrolyte abnormalities 2. no labor seen 3. prematurity- no steroids indicated at this time 4. APL syndrome continue lovenox
--- NOTE | 2018-09-10 13:10 | PN.OBGYN_ITS ---
Subjective: improved nausea no emesis since last night no CP SOB pain - Physical Exam General: Alert, Oriented x3 Lungs: Normal air movement Cardiovascular: Regular rate Abdomen: Soft, Non Tender, Gravid Vital Signs FHT: 130 moderate variability reactive no decelerations category I tracing- initially nonreactive then reactive [place]: regular Temp Pulse Resp BP Pulse Ox 97.4 F L 93 16 123/91 H 98 09/09/18 13:50 09/09/18 18:01 09/09/18 18:01 09/09/18 18:01 09/09/18 18:01 Oxygen Delivery Method Room Air Weight: 172 lb 8 oz Body Mass Index (BMI) 29.6 Intake and Output for Last 24 Hours 09/08/18 09/09/18 09/10/18 23:59 23:59 23:59 Output Total 300 / 300 Balance -300 / -300 Laboratory Tests Past 24 Hrs 09/09/18 09/09/18 09/09/18 14:20 14:20 14:20 WBC 22.4 H RBC 4.89 Hgb 14.6 Hct 45.5 MCV 93.0 MCH 29.9 MCHC 32.1 RDW 13.0 RDW Differential 44.0 H Plt Count 216 MPV 13.8 H Immature Gran % (Auto) 0.600 Neut % (Auto) 74.3 H Lymph % (Auto) 15.8 L Wolfe % (Auto) 8.7 Eos % (Auto) 0.5 Baso % (Auto) 0.1 Absolute Neuts (auto) 16.6 H Absolute Lymphs (auto) 3.55 Total Counted Not Reportable Differential Comment Diff Path Review May foll Platelet Estimate ADEQUATE RBC Morphology NORM C+C Sodium 137 Potassium 3.0 L Chloride 93 L Carbon Dioxide 32.0 Anion Gap 12 BUN 12 Creatinine 0.97 Estim Creat Clear Calc 69.90 Est GFR (MDRD) Af Amer 84 Est GFR (MDRD) Non-Af 69 BUN/Creatinine Ratio 12.3 Glucose 97 Calcium 14.5 H* Phosphorus Magnesium 1.4 L Total Bilirubin 0.40 Direct Bilirubin 0.14 AST 24 ALT 24 Alkaline Phosphatase 155 H Total Protein 7.2 Albumin 3.1 L Globulin 4.1 Albumin/Globulin Ratio Lipase 486 H Urine Color Urine Clarity Urine pH Ur Specific [place] Urine Protein Urine Glucose (UA) Urine Ketones Urine Occult Blood Urine Nitrite Urine Bilirubin Urine Urobilinogen Ur Leukocyte Esterase Urine RBC Urine WBC Ur Squamous Epith Cells Urine Bacteria Urine Mucus Urine Opiates Screen Urine Methadone Screen Ur Barbiturates Screen Ur Phencyclidine Scrn Ur Amphetamines Screen U Methamphetamin-MDMA U Benzodiazepines Scrn Urine Cocaine Screen U Cannabinoids Screen Ur Drug Screen Comment 09/09/18 09/09/18 09/09/18 14:20 15:50 19:35 WBC RBC Hgb Hct MCV MCH MCHC RDW RDW Differential Plt Count MPV Immature Gran % (Auto) Neut % (Auto) Lymph % (Auto) Wolfe % (Auto) Eos % (Auto) Baso % (Auto) Absolute Neuts (auto) Absolute Lymphs (auto) Total Counted Differential Comment Diff Path Review Platelet Estimate RBC Morphology Sodium Potassium Chloride Carbon Dioxide Anion Gap BUN Creatinine Estim Creat Clear Calc Est GFR (MDRD) Af Amer Est GFR (MDRD) Non-Af BUN/Creatinine Ratio Glucose Calcium Phosphorus 3.6 Magnesium Total Bilirubin Direct Bilirubin AST ALT Alkaline Phosphatase Total Protein Albumin Globulin Albumin/Globulin Ratio Lipase Urine Color Roro Urine Clarity Sl. Cloudy Urine pH 5.0 Ur Specific [place] 1.030 Urine Protein 30 H Urine Glucose (UA) Normal Urine Ketones 150 H Urine Occult Blood 10 H Urine Nitrite Negative Urine Bilirubin 1 H Urine Urobilinogen 1 H Ur Leukocyte Esterase 25 H Urine RBC 0 SEEN Urine WBC 0-5 SEEN Ur Squamous Epith Cells 10-25 SEEN Urine Bacteria 1+ Urine Mucus 0 SEEN Urine Opiates Screen NEGATIVE Urine Methadone Screen NEGATIVE Ur Barbiturates Screen NEGATIVE Ur Phencyclidine Scrn NEGATIVE Ur Amphetamines Screen NEGATIVE U Methamphetamin-MDMA NEGATIVE U Benzodiazepines Scrn NEGATIVE Urine Cocaine Screen NEGATIVE U Cannabinoids Screen NEGATIVE Ur Drug Screen Comment 09/09/18 09/09/18 09/10/18 21:40 21:52 05:55 WBC RBC Hgb Hct MCV MCH MCHC RDW RDW Differential Plt Count MPV Immature Gran % (Auto) Neut % (Auto) Lymph % (Auto) Wolfe % (Auto) Eos % (Auto) Baso % (Auto) Absolute Neuts (auto) Absolute Lymphs (auto) Total Counted Differential Comment Diff Path Review Platelet Estimate RBC Morphology Sodium 139 140 Potassium 3.3 L 3.2 L Chloride 96 L 100 Carbon Dioxide 33.0 H 30.0 Anion Gap 10 10 BUN 13 14 Creatinine 0.85 0.81 Estim Creat Clear Calc 79.77 83.71 Est GFR (MDRD) Af Amer 98 103 Est GFR (MDRD) Non-Af 81 85 BUN/Creatinine Ratio 15.3 17.2 Glucose 84 77 Calcium 12.5 H 11.2 H Phosphorus Magnesium 1.5 L Total Bilirubin 0.50 Direct Bilirubin AST 17 ALT 20 Alkaline Phosphatase 117 Total Protein 5.7 L Albumin 2.4 L Globulin 3.3 Albumin/Globulin Ratio 0.7 L Lipase 624 H Urine Color Urine Clarity Urine pH Ur Specific [place] Urine Protein Urine Glucose (UA) Urine Ketones Urine Occult Blood Urine Nitrite Urine Bilirubin Urine Urobilinogen Ur Leukocyte Esterase Urine RBC Urine WBC Ur Squamous Epith Cells Urine Bacteria Urine Mucus Urine Opiates Screen Urine Methadone Screen Ur Barbiturates Screen Ur Phencyclidine Scrn Ur Amphetamines Screen U Methamphetamin-MDMA U Benzodiazepines Scrn Urine Cocaine Screen U Cannabinoids Screen Ur Drug Screen Comment 09/10/18 09/10/18 05:55 05:55 WBC 19.7 H RBC 4.04 L Hgb 12.2 Hct 37.9 MCV 93.8 MCH 30.2 MCHC 32.2 RDW 13.1 RDW Differential 44.3 H Plt Count 164 MPV 12.8 H Immature Gran % (Auto) 0.500 Neut % (Auto) 71.3 H Lymph % (Auto) 20.1 Wolfe % (Auto) 7.0 Eos % (Auto) 0.9 Baso % (Auto) 0.2 Absolute Neuts (auto) 14.1 H Absolute Lymphs (auto) 3.96 Total Counted Not Reportable Differential Comment Diff Path Review Platelet Estimate RBC Morphology Sodium Potassium Chloride Carbon Dioxide Anion Gap BUN Creatinine Estim Creat Clear Calc Est GFR (MDRD) Af Amer Est GFR (MDRD) Non-Af BUN/Creatinine Ratio Glucose Calcium Phosphorus Magnesium 2.3 Total Bilirubin Direct Bilirubin AST ALT Alkaline Phosphatase Total Protein Albumin Globulin Albumin/Globulin Ratio Lipase Urine Color Urine Clarity Urine pH Ur Specific [place] Urine Protein Urine Glucose (UA) Urine Ketones Urine Occult Blood Urine Nitrite Urine Bilirubin Urine Urobilinogen Ur Leukocyte Esterase Urine RBC Urine WBC Ur Squamous Epith Cells Urine Bacteria Urine Mucus Urine Opiates Screen Urine Methadone Screen Ur Barbiturates Screen Ur Phencyclidine Scrn Ur Amphetamines Screen U Methamphetamin-MDMA U Benzodiazepines Scrn Urine Cocaine Screen U Cannabinoids Screen Ur Drug Screen Comment Medical Necessity - Tobacco Use Smoking Status: Never smoker Assessment/Plan All Active Problems (Last Reviewed 09/07/18 @ 11:45 by Melissa Graham) Intractable vomiting (Acute) Hypokalemia (Acute) Elevated lipase (Acute) Uterine fibroid complicating care, baby not yet delivered (Acute) (Acute) , high-risk, maternal age 35+ multigravida (Acute) Heartburn (Acute) This is a 33 year-old, at 35 weeks 1d gestational age presents with nausea and vomiting 1. admit to hospital for STO and consult hospitalist for elevated lipase and electrolyte abnormalities- s/p some replacement, nl abdominal ultrasound, will discuss with hospitalist regarding additional followup and replacement PRN 2. no labor suspected 3. prematurity- no steroids indicated at this time 4. APL syndrome continue lovenox
[2018-09-10 13:11] LABS: Pathologist Review Reviewed
[2018-09-10] MEDS: Potassium Chloride 10mEq/100mL 10 MEQ/100 ML IV.SOLN. 100 MEQ IV BOLUS (14:20)
[2018-09-10] MEDS: Mag Hydrox/Al Hydrox/Simeth 30 ML UDC PO (15:12)
--- NOTE | 2018-09-10 15:24 | NURSING ---
1330 hospitalist into see pt
--- NOTE | 2018-09-10 15:24 | NURSING ---
[id number] pt adamant about going home; kcl burning and hurting her arm while infusing wants it turned off; pt wants to speak with dr martinez
--- NOTE | 2018-09-10 15:25 | NURSING ---
1510 dr villalta into see pt. - reviewed risk of going home in current condition- pt verbalizes understanding and wishes to be discharged- Dr Villalta discharged pt. Iv dc'ed, mylanta given for heartburn, pt discharged at 1520 to home
--- NOTE | 2018-09-10 16:24 | PCM.PN.HOSP ---
Subjective: Patient seen and examined. Patient is a 33-year-old female who is 1 para 0 and currently 36 weeks was admitted with a complaint of intractable nausea and vomiting for the last 4 days. Emesis was bilious in nature and worsened in the 2 days prior to admission as she started vomiting every 3-4 hours. She also has generalized abdominal discomfort especially in the epigastric region and upper back. Lipase was elevated at 486 and only ALP was slightly elevated at 155. LFTs were otherwise within normal limits. Calcium was elevated at 14.5 and she was hypokalemic with potassium of 3. She had never had a history of pancreatitis, liver or gallbladder disease. She was admitted to be managed for dehydration due to nausea and vomiting, pancreatitis and hypercalcemia. She was started on IV fluids and potassium was replaced. Patient seen and examined this morning. Vomiting has resolved and abdominal pain has also resolved. Review of systems otherwise negative. Lipase had trended up to about 624. On further inquiry, patient admits to taking Tums very frequently on account of GERD. She cannot see how many she takes every day but states that examination cannot quantify. Review of systems otherwise negative. Denies any history of previous hypercalcemia and also states that she is never had any problem with her thyroid or parathyroid so had any neck surgery. Vitals/I&O's: Vital Signs Temp Pulse Resp BP Pulse Ox 97.4 F L 93 16 123/91 H 98 09/09/18 13:50 09/09/18 18:01 09/09/18 18:01 09/09/18 18:01 09/09/18 18:01 Oxygen Delivery Method Room Air Weight: 172 lb 8 oz Body Mass Index (BMI) 29.6 Intake and Output for Last 24 Hours 09/08/18 09/09/18 09/10/18 23:59 23:59 23:59 Output Total 300 / 300 Balance -300 / -300 General: Alert, Oriented x3, Cooperative, No apparent distress HEENT: Atraumatic, PERRLA, EOMI, Normocephalic Oral: Moist Mucosa Neck: Supple, No JVD, Negative Carotid Bruits Lungs: Clear to auscultation, Normal air movement, No rhonchi, No wheeze, No rales Cardiovascular: Regular rate, Regular Rhythm, Normal S1, Normal S2, No murmurs Abdomen: Bowel Sounds Present, Non Tender, - - gravid uterus Extremities: No clubbing, No cyanosis, No edema, Capillary Refill Less than 3 Seconds Skin: No rashes, No breakdown Musculoskeletal: No Tenderness to Palpation of Joints or Extremities Lymphatic: No Cervical, Supraclavicular, or Inguinal Adenopathy Neurological: Cranial nerves II-XII grossly intact, Neuro grossly intact, Motor Exam 5/5 strength throughout Psych/Mental Status: Normal Affect, Appropriate, Alert and oriented to time, place, person, mood and affect Laboratory Results 09/09/18 14:20: WBC 22.4 H, RBC 4.89, Hgb 14.6, Hct 45.5, MCV 93.0, MCH 29.9, MCHC 32.1, RDW 13.0, RDW Differential 44.0 H, Plt Count 216, MPV 13.8 H, Immature Gran % (Auto) 0.600, Neut % (Auto) 74.3 H, Lymph % (Auto) 15.8 L, Mower % (Auto) 8.7, Eos % (Auto) 0.5, Baso % (Auto) 0.1, Absolute Neuts (auto) 16.6 H, Absolute Lymphs (auto) 3.55, Total Counted Not Reportable, Differential Comment , Diff Path Review Reviewed, Platelet Estimate ADEQUATE, RBC Morphology NORM C+C 09/09/18 14:20: Sodium 137, Potassium 3.0 L, Chloride 93 L, Carbon Dioxide 32.0, Anion Gap 12, BUN 12, Creatinine 0.97, Estim Creat Clear Calc 69.90, Est GFR (MDRD) Af Amer 84, Est GFR (MDRD) Non-Af 69, BUN/Creatinine Ratio 12.3, Glucose 97, Calcium 14.5 H*, Total Bilirubin 0.40, Direct Bilirubin 0.14, AST 24, ALT 24, Alkaline Phosphatase 155 H, Total Protein 7.2, Albumin 3.1 L, Globulin 4.1, Lipase 486 H 09/09/18 14:20: Magnesium 1.4 L 09/09/18 14:20: Phosphorus 3.6 09/09/18 19:35: Urine Opiates Screen NEGATIVE, Urine Methadone Screen NEGATIVE, Ur Barbiturates Screen NEGATIVE, Ur Phencyclidine Scrn NEGATIVE, Ur Amphetamines Screen NEGATIVE, U Methamphetamin-MDMA NEGATIVE, U Benzodiazepines Scrn NEGATIVE, Urine Cocaine Screen NEGATIVE, U Cannabinoids Screen NEGATIVE, Ur Drug Screen Comment 09/09/18 21:40: Sodium 139, Potassium 3.3 L, Chloride 96 L, Carbon Dioxide 33.0 H, Anion Gap 10, BUN 13, Creatinine 0.85, Estim Creat Clear Calc 79.77, Est GFR (MDRD) Af Amer 98, Est GFR (MDRD) Non-Af 81, BUN/Creatinine Ratio 15.3, Glucose 84, Calcium 12.5 H 09/09/18 21:52: Magnesium 1.5 L 09/10/18 05:55: Sodium 140, Potassium 3.2 L, Chloride 100, Carbon Dioxide 30.0, Anion Gap 10, BUN 14, Creatinine 0.81, Estim Creat Clear Calc 83.71, Est GFR (MDRD) Af Amer 103, Est GFR (MDRD) Non-Af 85, BUN/Creatinine Ratio 17.2, Glucose 77, Calcium 11.2 H, Total Bilirubin 0.50, AST 17, ALT 20, Alkaline Phosphatase 117, Total Protein 5.7 L, Albumin 2.4 L, Globulin 3.3, Albumin/Globulin Ratio 0.7 L, Lipase 624 H 09/10/18 05:55: WBC 19.7 H, RBC 4.04 L, Hgb 12.2, Hct 37.9, MCV 93.8, MCH 30.2, MCHC 32.2, RDW 13.1, RDW Differential 44.3 H, Plt Count 164, MPV 12.8 H, Immature Gran % (Auto) 0.500, Neut % (Auto) 71.3 H, Lymph % (Auto) 20.1, Mower % (Auto) 7.0, Eos % (Auto) 0.9, Baso % (Auto) 0.2, Absolute Neuts (auto) 14.1 H, Absolute Lymphs (auto) 3.96, Total Counted Not Reportable 09/10/18 05:55: Magnesium 2.3 Diagnostic Data Abdomen Ultrasound 09/09/18 19:01 IMPRESSION: Normal right upper quadrant ultrasound examination. Electronically Signed: Franco Carey DO at 22:43 EST Tel [phone], Service support , Obstetrics Ultrasound 09/09/18 19:01 IMPRESSION: Single live intrauterine fetus in breech presentation as seen at the end of the examination with an estimated gestational age of 34 weeks and 5 days. The JAY is 10/16/2018. Normal KWASI. Uterine fibroid. Electronically Signed: Prabhakar Cordero MD at 22:20 EST Tel , Service support , Biophysical Profile Ultrasound 09/10/18 08:04 IMPRESSION: Normal biophysical profile of 03/03. Electronically Signed: Umesh Garcia MD at 14:28 EST , Service support , Medical Necessity - Tobacco Use Smoking Status: Never smoker Assessment/Plan All Active Problems (Last Reviewed 09/07/18 @ 11:45 by Melissa Graham) Intractable vomiting (Acute) Hypokalemia (Acute) Elevated lipase (Acute) Uterine fibroid complicating care, baby not yet delivered (Acute) (Acute) , high-risk, maternal age 35+ multigravida (Acute) Heartburn (Acute) 1. Acute pancreatitis likely due to hypercalcemia Admitted with intractable nausea and vomiting as well as abdominal pain. Pain is been in the epigastrium. Initial lipase was 46 but has trended up to 624. Nausea and vomiting have resolved as well as abdominal pain. Patient feels better though her lipase is trended up. Also remains elevated. Patient takes Tums which contains calcium carbonate very frequently and is unable to quantify how much he takes. Patient tolerating liquid diet. Advance as tolerated. Patient counseled that in light of his still elevated calcium which is around 11.5, to monitor till tomorrow repeat calcium level. Tums stopped. 2. Hypercalcemia due to calcium carbonate intake Also was 14.5 on admission was initially thought to be due to dehydration and hemoconcentration. However with IV fluids, certainly trended down to 11.5. Calcium level was normal in June 2018. Patient states she has been taking a lot of Tums over the last few weeks on account of reflux. Continue hydrating and monitor calcium level for improvement. 3. HYpokelamia: K is 3.2 today. Mg level is normal. Will replace and monitor 4. Dehydration due to intractable nausea and vomiting: resolved with IVF administration 5. History of antiphospholipid syndrome Lipid antibodies were positive. On Lovenox. Disposition: After review, I was informed that patient insisted on leaving even though I had stated that I would prefer that she is monitored overnight for monitoring of her calcium. SHe was therefore discharged by [employer]. Patient to stop taking Tums Code Visit OBSV E&M: 79819 Subsequent observation care L3
--- NOTE | 2018-09-10 16:29 | PN_ITS ---
Subjective: Patient seen and examined. Patient is a 33-year-old female who is 1 para 0 and currently 36 weeks was admitted with a complaint of intractable nausea and vomiting for the last 4 days. Emesis was bilious in nature and worsened in the 2 days prior to admission as she started vomiting every 3-4 hours. She also has generalized abdominal discomfort especially in the epigastric region and upper back. Lipase was elevated at 486 and only ALP was slightly elevated at 155. LFTs were otherwise within normal limits. Calcium was elevated at 14.5 and she was hypokalemic with potassium of 3. She had never had a history of pancreatitis, liver or gallbladder disease. She was admitted to be managed for dehydration due to nausea and vomiting, pancreatitis and hypercalcemia. She was started on IV fluids and potassium was replaced. Patient seen and examined this morning. Vomiting has resolved and abdominal pain has also resolved. Review of systems otherwise negative. Lipase had trended up to about 624. On further inquiry, patient admits to taking Tums very frequently on account of GERD. She cannot see how many she takes every day but states that examination cannot quantify. Review of systems otherwise negative. Denies any history of previous hypercalcemia and also states that she is never had any problem with her thyroid or parathyroid so had any neck surgery. Vitals/I&O's: Vital Signs Temp Pulse Resp BP Pulse Ox 97.4 F L 93 16 123/91 H 98 09/09/18 13:50 09/09/18 18:01 09/09/18 18:01 09/09/18 18:01 09/09/18 18:01 Oxygen Delivery Method Room Air Weight: 172 lb 8 oz Body Mass Index (BMI) 29.6 Intake and Output for Last 24 Hours 09/08/18 09/09/18 09/10/18 23:59 23:59 23:59 Output Total 300 / 300 Balance -300 / -300 General: Alert, Oriented x3, Cooperative, No apparent distress HEENT: Atraumatic, PERRLA, EOMI, Normocephalic Oral: Moist Mucosa Neck: Supple, No JVD, Negative Carotid Bruits Lungs: Clear to auscultation, Normal air movement, No rhonchi, No wheeze, No rales Cardiovascular: Regular rate, Regular Rhythm, Normal S1, Normal S2, No murmurs Abdomen: Bowel Sounds Present, Non Tender, - - gravid uterus Extremities: No clubbing, No cyanosis, No edema, Capillary Refill Less than 3 Seconds Skin: No rashes, No breakdown Musculoskeletal: No Tenderness to Palpation of Joints or Extremities Lymphatic: No Cervical, Supraclavicular, or Inguinal Adenopathy Neurological: Cranial nerves II-XII grossly intact, Neuro grossly intact, Motor Exam 5/5 strength throughout Psych/Mental Status: Normal Affect, Appropriate, Alert and oriented to time, place, person, mood and affect Laboratory Results 09/09/18 14:20: WBC 22.4 H, RBC 4.89, Hgb 14.6, Hct 45.5, MCV 93.0, MCH 29.9, MCHC 32.1, RDW 13.0, RDW Differential 44.0 H, Plt Count 216, MPV 13.8 H, Immature Gran % (Auto) 0.600, Neut % (Auto) 74.3 H, Lymph % (Auto) 15.8 L, [place] % (Auto) 8.7, Eos % (Auto) 0.5, Baso % (Auto) 0.1, Absolute Neuts (auto) 16.6 H, Absolute Lymphs (auto) 3.55, Total Counted Not Reportable, Differential Comment , Diff Path Review Reviewed, Platelet Estimate ADEQUATE, RBC Morphology NORM C+C 09/09/18 14:20: Sodium 137, Potassium 3.0 L, Chloride 93 L, Carbon Dioxide 32.0, Anion Gap 12, BUN 12, Creatinine 0.97, Estim Creat Clear Calc 69.90, Est GFR (MDRD) Af Amer 84, Est GFR (MDRD) Non-Af 69, BUN/Creatinine Ratio 12.3, Glucose 97, Calcium 14.5 H*, Total Bilirubin 0.40, Direct Bilirubin 0.14, AST 24, ALT 24, Alkaline Phosphatase 155 H, Total Protein 7.2, Albumin 3.1 L, Globulin 4.1, Lipase 486 H 09/09/18 14:20: Magnesium 1.4 L 09/09/18 14:20: Phosphorus 3.6 09/09/18 19:35: Urine Opiates Screen NEGATIVE, Urine Methadone Screen NEGATIVE, Ur Barbiturates Screen NEGATIVE, Ur Phencyclidine Scrn NEGATIVE, Ur Amphetamines Screen NEGATIVE, U Methamphetamin-MDMA NEGATIVE, U Benzodiazepines Scrn NEGATIV E, Urine Cocaine Screen NEGATIVE, U Cannabinoids Screen NEGATIVE, Ur Drug Screen Comment 09/09/18 21:40: Sodium 139, Potassium 3.3 L, Chloride 96 L, Carbon Dioxide 33.0 H, Anion Gap 10, BUN 13, Creatinine 0.85, Estim Creat Clear Calc 79.77, Est GFR (MDRD) Af Amer 98, Est GFR (MDRD) Non-Af 81, BUN/Creatinine Ratio 15.3, Glucose 84, Calcium 12.5 H 09/09/18 21:52: Magnesium 1.5 L 09/10/18 05:55: Sodium 140, Potassium 3.2 L, Chloride 100, Carbon Dioxide 30.0, Anion Gap 10, BUN 14, Creatinine 0.81, Estim Creat Clear Calc 83.71, Est GFR (MDRD) Af Amer 103, Est GFR (MDRD) Non-Af 85, BUN/Creatinine Ratio 17.2, Glucose 77, Calcium 11.2 H, Total Bilirubin 0.50, AST 17, ALT 20, Alkaline Phosphatase 117, Total Protein 5.7 L, Albumin 2.4 L, Globulin 3.3, Albumin/Globulin Ratio 0.7 L, Lipase 624 H 09/10/18 05:55: WBC 19.7 H, RBC 4.04 L, Hgb 12.2, Hct 37.9, MCV 93.8, MCH 30.2, MCHC 32.2, RDW 13.1, RDW Differential 44.3 H, Plt Count 164, MPV 12.8 H, Immature Gran % (Auto) 0.500, Neut % (Auto) 71.3 H, Lymph % (Auto) 20.1, [place] % (Auto) 7.0, Eos % (Auto) 0.9, Baso % (Auto) 0.2, Absolute Neuts (auto) 14.1 H, Absolute Lymphs (auto) 3.96, Total Counted Not Reportable 09/10/18 05:55: Magnesium 2.3 Diagnostic Data Abdomen Ultrasound 09/09/18 19:01 IMPRESSION: Normal right upper quadrant ultrasound examination. Electronically Signed: Franco Carey DO at 22:43 EST Tel [phone], Service support , Obstetrics Ultrasound 09/09/18 19:01 IMPRESSION: Single live intrauterine fetus in breech presentation as seen at the end of the examination with an estimated gestational age of 34 weeks and 5 days. The JAY is 10/16/2018. Normal KWASI. Uterine fibroid. Electronically Signed: Prabhakar Cordero MD at 22:20 EST Tel , Service support , Biophysical Profile Ultrasound 09/10/18 08:04 IMPRESSION: Normal biophysical profile of 03/03. Electronically Signed: Umesh Garcia MD at 14:28 EST , Service support , Medical Necessity - Tobacco Use Smoking Status: Never smoker Assessment/Plan All Active Problems (Last Reviewed 09/07/18 @ 11:45 by Melissa Graham) Intractable vomiting (Acute) Hypokalemia (Acute) Elevated lipase (Acute) Uterine fibroid complicating care, baby not yet delivered (Acute) (Acute) , high-risk, maternal age 35+ multigravida (Acute) Heartburn (Acute) 1. Acute pancreatitis likely due to hypercalcemia * Admitted with intractable nausea and vomiting as well as abdominal pain. Pain is been in the epigastrium. Initial lipase was 46 but has trended up to 624. * Nausea and vomiting have resolved as well as abdominal pain. Patient feels better though her lipase is trended up. * Also remains elevated. Patient takes Tums which contains calcium carbonate very frequently and is unable to quantify how much he takes. * Patient tolerating liquid diet. Advance as tolerated. * Patient counseled that in light of his still elevated calcium which is around 11.5, to monitor till tomorrow repeat calcium level. Tums stopped. * 2. Hypercalcemia due to calcium carbonate intake * Also was 14.5 on admission was initially thought to be due to dehydration and hemoconcentration. * However with IV fluids, certainly trended down to 11.5. Calcium level was nor mal in June 2018. Patient states she has been taking a lot of Tums over the last few weeks on account of reflux. * Continue hydrating and monitor calcium level for improvement. * 3. HYpokelamia: K is 3.2 today. Mg level is normal. Will replace and monitor 4. Dehydration due to intractable nausea and vomiting: resolved with IVF administration 5. History of antiphospholipid syndrome * Lipid antibodies were positive. On Lovenox. * Disposition: * After review, I was informed that patient insisted on leaving even though I had stated that I would prefer that she is monitored overnight for monitoring of her calcium. SHe was therefore discharged by [employer]. Patient to stop taking Tums Code Visit OBSV E&M: [id number] Subsequent observation care L3
== END 2018-09-10 15:20 | disposition home or self-care (01) ==
LOC: ED 18:29 → WP 18:44 → ED 09-10 10:23 → WPOUT 09-10 10:24 → WP 09-10 10:24 → WPOUT 09-10 10:25
PROVIDERS: Family Medicine; Internal Medicine; Admitting Provider Obstetrics & Gynecology; Emergency Provider Emergency Medicine; Family Provider Family Medicine; PCP Family Medicine; Referring Provider Obstetrics & Gynecology; Visit Provider Student in an Organized Health Care Education/Training Program
DX: O26.893 Other specified pregnancy related conditions, third trimester (principal); K85.90 Acute pancreatitis without necrosis or infection, unspecified; E86.0 Dehydration; E83.52 Hypercalcemia; O34.13 Maternal care for benign tumor of corpus uteri, third trimester; O09.513 Supervision of elderly primigravida, third trimester; Z79.899 Other long term (current) drug therapy; Z79.82 Long term (current) use of aspirin; O99.113 Other diseases of the blood and blood-forming organs and certain disorders involving the immune mechanism complicating pregnancy, third trimester; D68.61 Antiphospholipid syndrome; Z3A.35 35 weeks gestation of pregnancy; O99.343 Other mental disorders complicating pregnancy, third trimester; F32.9 Major depressive disorder, single episode, unspecified; F41.9 Anxiety disorder, unspecified; K21.9 Gastro-esophageal reflux disease without esophagitis
CPT/HCPCS: 96361 ×2; 96374; 96375 ×2; 96376; 36415; 59025; 59050; 76705; 76816; 76818; 80048; 80053; 80076; 80307; 81001; 83690; 83735; 84100; 85025; 87086; 87088; 96372; 99218; 99282; J7030; A4216; G0378; J2405; J3490

== ENCOUNTER → 2018-09-15 16:24 | Outpatient (CLI) | payer BC, SELFPAY ==
[2018-09-09 18:43] VITALS: BMI 29.6
== END ==
LOC: MFPLAB 16:25 → LABSPEC 16:26
PROVIDERS: Family Provider Family Medicine; PCP Family Medicine; Visit Provider Family Medicine
DX: R19.7 Diarrhea, unspecified (principal)
CPT/HCPCS: 87493; 87506

== ENCOUNTER → 2018-09-21 16:03 | Outpatient (CLI) | payer BC, SELFPAY ==
[2018-09-21 11:27] VITALS: BMI 31.0
== END ==
PROVIDERS: Referring Provider Obstetrics & Gynecology; Visit Provider Obstetrics & Gynecology
DX: Z34.90 Encounter for supervision of normal pregnancy, unspecified, unspecified trimester (principal)
CPT/HCPCS: 87081

== ENCOUNTER 2018-10-08 19:13 | Inpatient (IN) | payer BC, SELFPAY ==
[2018-09-02 15:06] VITALS: BMI 30.7
[2018-10-05 11:25] VITALS: BMI 29.6
[2018-10-08 19:17] VITALS: BMI 31.5
--- NOTE | 2018-10-08 19:23 | HP.PCM_ITS ---
- Problem List (1) Status: Acute Qualifiers: Comment: AFP- negative; anatomy US complete-recheck growth every 4 week. Weekly NSTs starting 2 weekly at 32 weeks. (2) , high-risk, maternal age 35+ multigravida Status: Acute Comment: PRR JAY 10/14/18 girl Ministerio growth us 36 weeks; 08/02/18 regrowth/anatomy consistent with dates- note 7cm fibroid re check and growth every 4 weeks weekly nst at 32 weeks - pt notified. (3) Uterine fibroid complicating care, baby not yet delivered Status: Acute Comment: Low and posterior fibroid near cervix Growth US q4 wk and weekly NST at 32 week (4) Abnormal blood coagulation profile Status: Chronic Comment: positive anticardiolipin antibody, recommendlovenox and baby ASA and MFM consult due to postiive antibody but no symptoms of syndrome History and Physical Date of Admission: 10/08/18 Intake Vital Signs 10/05/18 Body Mass Index (BMI) 29.6 10/05/18 Height 5 ft 4 in 10/05/18 Weight: 184 lb 10/05/18 Body Mass Index (BMI) 31.6 10/05/18 Blood Pressure 120/84 H Intake Visit Reasons: 39 WEEK OB Chief Complaint: est ob Administration Physician Required: No Is patient in pain?: No Allergies welbutrin Allergy (Mild, Uncoded 10/05/18 11:25) Other Medications enoxaparin 40 mg/0.4 mL subcutaneous syringe 40 mg SC DAILY 06/03/18 [History Confirmed 10/05/18] Aspirin [Aspir-Low] 81 mg PO DAILY 07/24/18 [History Confirmed 10/05/18] Famotidine [Pepcid] 40 mg PO DAILY 07/24/18 [History Confirmed 10/05/18] Fluoxetine [Prozac] 10 mg PO DAILY 07/24/18 [History Confirmed 10/05/18] Acetaminophen [Tylenol Extra Strength] 500 mg PO Q6H PRN PRN 09/09/18 [History Confirmed 10/05/18] Calcium Carbonate [Tums] 500 mg PO Q6H PRN PRN 09/09/18 [History Confirmed 07/14] Pnv No.95/Ferrous Fum/Folic AC [ Formula] 1 ea PO DAILY 09/09/18 [History Confirmed 10/05/18] proMETHazine tablet [Phenergan tablet] 12.5 mg PO Q6H PRN PRN 09/09/18 [History Confirmed 10/05/18] Potassium Chloride [K-Dur] 20 meq PO BID #6 tab 09/10/18 [Rx Confirmed 10/05/18] heparin (porcine) 5,000 unit/mL injection syringe 5,000 unit SC Q12H #28 ml 09/24/18 [Rx Confirmed 10/05/18] Last Menstral Period: 01/07/18 Zika: Zika virus screening: Negative : No PFSH PFSH Medical History Heartburn (Acute) Abnormal Pap smear of cervix (Acute) Anxiety and depression (Acute) Surgical History pre cancerous removal of skin (Acute) Family History Unknown Cancer skin Social History Smoking Status: Never smoker alcohol intake: never details: social substance use type: does not use caffeine: No what type of physical activity do you participate in: none frequency: 1-2 times per week seatbelt use: always do you feel safe at home: Yes additional social history: [place]- 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 OB Visit JAY Calculator Estimated Delivery Date 10/14/18 Based on LMP (certain) 01/07/18 Current WG 38w 5d Number 1 Expected Delivery Route/Plan Specific Issue/Plans flu vaccine: given tdap vaccine: given rhogam: na LARC form signed: labor support person: Ministerio pain management: epidural cut cord/dad catch: no : yes PP control planned: considering IUD or depo discussed possible routes of delivery and associated risks: [] special requests: [] Initial Weight: 170 lb Date EGA Weight BP Urine Prot Glucose FHR FuHt Pres Mov CTX Dilation Effaced St Visit Note 03/12/18 9w 1d 170 lb 2 oz (+2 oz) 107/74 04/09/18 13w 1d 168 lb (-2 lb) 104/71 Trace Negative 160 no vb cramping some pelvic pain plan US bc of possible adnexal mass seen at first visit and will check AF Pand APL panel 05/06/18 17w 0d 169 lb 8 oz (-8 oz) 98/58 Negative Negative 160 no vb cramping discussed with patient positive APL testing- recommend starting baby asa and get mfm consult to see if she should start lovenox. 06/03/18 21w 0d 171 lb (+16 oz) 118/70 Negative Negative 150 no vb lof good fm no regular ctx 07/02/18 25w 1d 177 lb 8 oz (+7 lb 8 oz) 110/68 Negative Negative 150 25 no vb lof good fm no regular ctx 07/16/18 27w 1d 179 lb (+9 lb) 110/66 Negative Negative 150 28 no vb lof good fm n oregular ctx cbc gct tdap today 07/30/18 29w 1d 176 lb (+6 lb) 100/60 1+ A Negative 140 29 no vb lof good fm no regular ctx recovering from stomach flu 08/24/18 32w 5d 179 lb (+9 lb) 90/62 Trace Negative 140 32 Active absent no vb lof good fm no regular ctx 09/02/18 34w 0d 180 lb 4 oz (+10 lb 4 oz) 110/82 Negative Negative absent co vaginal swelling on left labia, some mild discomfort, no dysuria no fevers 09/07/18 34w 5d 176 lb (+6 lb) 112/76 Negative Negative 152 33 Active absent Doing well. No VB, LOF. NST today. 09/21/18 36w 5d 181 lb (+11 lb) 120/82 Negative Negative 130 36 Breech Active absent feeling better, no vb lof good fm no regular ctx. switch to heparin. growth us september 30 10/05/18 38w 5d 184 lb (+14 lb) 120/84 Negative Negative 130 38 Cephalic Active absent 0 no vb lof good fm no regular ctx Visit Notes Visit Date: 10/05/18 ??no vb lof good fm no regular ctx ??Naomi Villalta MD on 10/05/18 Visit Date: 09/21/18 ??feeling better, no vb lof good fm no regular ctx. switch to heparin. growth us september 30 ??Naomi Villalta MD on 09/21/18 Visit Date: 09/07/18 ??Doing well. No VB, LOF. NST today. ??Delmi Espinoza NP-C on 09/07/18 Visit Date: 09/02/18 ??co vaginal swelling on left labia, some mild discomfort, no dysuria no fevers ??Naomi Villalta MD on 09/02/18 Visit Date: 08/24/18 ??no vb lof good fm no regular ctx ??Naomi Villalta MD on 08/24/18 Visit Date: 07/30/18 ??no vb lof good fm no regular ctx recovering from stomach flu ??Naomi Villalta MD on 07/30/18 Visit Date: 07/16/18 ??no vb lof good fm n oregular ctx cbc gct tdap today ??Naomi Villalta MD on 07/16/18 Visit Date: 07/02/18 ??no vb lof good fm no regular ctx ??Naomi Villalta MD on 07/02/18 Visit Date: 06/03/18 ??no vb lof good fm no regular ctx ??Naomi Villalta MD on 06/03/18 Visit Date: 05/06/18 ??discussed with patient positive APL testing- recommend starting baby asa and get mfm consult to see if she should start lovenox. ??Naomi Villalta MD on 05/09/18 ??no vb cramping ??Naomi Villalta MD on 05/09/18 Visit Date: 04/09/18 ??no vb cramping some pelvic pain plan US bc of possible adnexal mass seen at first visit and will check AF Pand APL panel ??Naomi Villalta MD on 04/09/18 Visit Date: 03/12/18 ??No visit notes to display ACOG First Trimester First Trimester: Desire for , Alcohol, Tobacco Cessation, Illicit/Recreational Drug/Substance Use, Intimate Partner Violence, Barriers to care, Unstable Housing, Communication Barriers, Environmental/Work Hazards, Anticipated Course of Care, Toxoplasmosis Precations, Use of Any medications, Sexual activity, Exercise, Dental Care, Sauna/Hot tub use, Seat Belt use, Childbirth classes/Hospital facilities, , Travel, Indications for US and Screening for Aneuploidy Second Trimester Second Trimester: Signs and Symptoms of Labor, Selecting a care provider, Reproductive Life Planning, Care Planning, Tobacco Cessation, Depression/Anxiety and Intimate Partner Violence Third Trimester Third Trimester: Pain Management Plans, Labor support person(s), Immediate Larc, Movement Monitoring and Feeding Yes ; discussed Trial of Labor after Counseling or discussed Circumcision preference Diagnostics Diagnostics Labs Hct 37.9 % (37-47) 09/10/18 Hgb 12.2 g/dl (12.0-15.0) 09/10/18 Obstetrics Ultrasound 09/09/18 Details: HIV: Urine Culture: Sequential Screen: NIPT Screen: ROS Const Reports system reviewed and no additional complaints, except as docu Card Reports system reviewed and no additional complaints, except as docu Resp Reports system reviewed and no additional complaints, except as docu GI Reports system reviewed and no additional complaints, except as docu, Reports nausea Reports system reviewed and no additional complaints, except as docu Musc Reports system reviewed and no additional complaints, except as docu Exam Const General: cooperative, healthy appearing, comfortable, anxious HENMT Head: normal to inspection Nose: external nose normal Face and sinus: normal facial exam Neck Neck: normal visual inspection, full ROM, no lymphadenopathy Thyroid: thyroid normal Chest Chest palpation & inspection: normal inspection of the chest Resp Effort & Inspection: normal respiratory effort GI Inspection: normal to inspection Palpation: soft, other (gravid uterus) Other: infant vertex and appropriate size for gestational age Other: Cervical Exam: Extrem General: pedal edema Results [id number] Office Urine Glucose Negative Last Edit by Melissa Graham on 10/05/18 11:31 Office Urine Protein Negative Last Edit by Melissa Graham on 10/05/18 11:31 Assessment & Plan Problems 1. Heartburn R12 zantac, failed pepcid 2. , high-risk, maternal age 35+ multigravida O09.529 PRR JAY 10/14/18 girl Ministerio growth us 36 weeks; 08/02/18 regrowth/anatomy consistent with dates- note 7cm fibroid re check and growth every 4 weeks weekly nst at 32 weeks - pt notified. 3. Abnormal blood coagulation profile R79.1 positive anticardiolipin antibody, recommendlovenox and baby ASA and MFM consult due to postiive antibody but no symptoms of syndrome 4. 38 weeks gestation of Z3A.38 AFP- negative; anatomy US complete-recheck growth every 4 week. Weekly NSTs starting 2 weekly at 32 weeks. 5. Uterine fibroid complicating care, baby not yet delivered O34.10; D25.9 Low and posterior fibroid near cervix Growth US q4 wk and weekly NST at 32 week Plan movement and labor precautions reviewed. ACOG trimester education reviewed and updated. see problem list details for updated plan management information and see below for orders placed at this visit. GA appropriate handout given. plan iol per mfm recommendation due to APL antibody. plan cytotec then FB when able, and pitocin. gbs neg. plan epidural when desired Orders Orders: POC Urinalysis 2 Dip (Clinic) Today OB NST Today O09.529 Coding Level of Care Code OB Routine Diagnoses Heartburn R12 , high-risk, maternal age 35+ multigravida O09.529 Abnormal blood coagulation profile R79.1 38 weeks gestation of Z3A.38 ??Weeks of gestation: 38 weeks Uterine fibroid complicating care, baby not yet delivered O34.10; D25.9
[2018-10-08] MEDS: Lactated Ringers 1,000 ML 50 ML IV (19:35)
[2018-10-08] MEDS: miSOPROStol 25 MCG TABLET VAGINAL (20:00)
[2018-10-08 20:04] LABS: Hematocrit 36.8 % (37-47); Hemoglobin 11.9 g/dl (12.0-15.0); Mean Corp Hgb Conc 32.3 g/gl (32-36); Mean Corpuscular Hgb 29.4 pg (27.0-32.0); Mean Corpuscular Volume 90.9 fL (81-99); Mean Platelet Vol. 12.1 fl (6.2-12.0); Platelet Count 126 K/mm3 (150-450); RBC Distribution Width CV 13.4 % (11.6-14.6); RBC Distribution Width SD 44.6 fl (35.1-43.9); Red Blood Count 4.05 M/mm3 (4.2-5.4); White Blood Count 11.8 K/mm3 (4.4-11.0)
[2018-10-08 20:05] LABS: Scan Indicated on CBC? Y/N NO
[2018-10-08] MEDS: Famotidine 20 MG Tablet PO (22:58)
[2018-10-09] MEDS: miSOPROStol 25 MCG TABLET VAGINAL ×4 (00:10→16:36)
[2018-10-09] MEDS: Acetaminophen 325 MG Tablet PO ×2 (00:18→17:36)
[2018-10-09] MEDS: Lactated Ringers 1,000 ML 50 ML IV (06:04)
[2018-10-09] MEDS: Nalbuphine 10 MG/ML Ampul IV ×3 (07:08→20:55)
--- NOTE | 2018-10-09 07:13 | PCM.PN.BLA ---
Progress Note fht 120-130 moderate variability reactive no decelerations category I tracing [place]: q1-2 minutes low amplitude, patient is not significantly uncomfortable with the contractions. assesment/plan reviewed with nursing and charge nurse- pateint hasn't made cervicla change in 2 1/2 hours since the last cytotec dose and is still closed thick and high. cytotec given vaginally. continue cytotec for cervical ripening.
[2018-10-09] MEDS: FLUoxetine 10 MG Capsule PO (10:09)
[2018-10-09] MEDS: Ondansetron 4 MG/2 ML Vial IV ×2 (12:55→21:52)
--- NOTE | 2018-10-09 19:35 | PN_ITS ---
Progress Note fht 110-120 moderate variability reactive no decelerations category I tracing [place]: regular- palpate mild to moderate, patient not visibly uncomfortable with any contractions. some mild pain med throughout the day attempted to insert FB and failed. will give 50mcg cytotec with next dose then plan pitocin. elevated bps in mild range so recommend continued IOL. cehck cbc and cmp now. cat I tracing. patient and updated with plan.
[2018-10-09 20:11] LABS: Absolute Lymphocyte Count 2.03 X10^3/ul (0.83-4.51); Absolute Neutrophil Count 13.3 X10^3/uL (2.0-7.7); Basophil# 0.02 X10^3/uL; Basophil% 0.1 % (0-1); Eosinophil# 0.09 X10^3/uL; Eosinophils% 0.5 % (0-5); Hematocrit 39.4 % (37-47); Hemoglobin 12.6 g/dl (12.0-15.0); Lymphocyte # 2.03 X10^3/ul (4.0); Lymphocyte % 12.2 % (19-41); Mean Corpuscular Hgb 29.4 pg (27.0-32.0); Mean Corpuscular Volume 91.8 fL (81-99); Monocyte# 1.15 X10^3/uL; Monocyte% 6.9 % (0-10); Platelet Count 120 K/mm3 (150-450); RBC Distribution Width CV 13.5 % (11.6-14.6); RBC Distribution Width SD 44.4 fl (35.1-43.9); Red Blood Count 4.29 M/mm3 (4.2-5.4); White Blood Count 16.6 K/mm3 (4.4-11.0)
[2018-10-09 20:16] LABS: POSITIVE COUNT NO; POSITIVE DIFFERENTIAL NO; POSITIVE MORPHOLOGY NO
[2018-10-09 20:28] LABS: Albumin, Serum 2.4 g/dL (3.2-5.0); BUN 8 mg/dL (7-18); BUN/Creat Ratio 12.3 RATIO (10-20); Creatinine, Serum 0.65 mg/dL (0.55-1.02); EST Glomerular Filtration Rate 110 mL/min (>60); Est Glom Filt Rate - Afr Amer 133 mL/min (>60); Estimated Creatinine Clearance 104.32 ml/min; Glucose 95 mg/dL (74-106); Protein, Total 5.7 g/dL (6.4-8.2)
[2018-10-09 20:29] LABS: ALB/GLOB Ratio 0.7 RATIO (0.9-2.4); AST(SGOT) 14 U/L (15-37); Alanine Aminotransfer ALT/SGPT 19 U/L (13-56); Alkaline Phosphatase 142 U/L (45-117); Anion Gap 6 (5-15); Calcium,Total 8.4 mg/dL (8.5-10.1); Chloride 109 mmol/L (98-107); Globulin 3.3 g/dL (2.2-4.2); Potassium 3.2 mmol/L (3.5-5.1); Sodium Level 142 mmol/L (136-145)
[2018-10-09] MEDS: miSOPROStol 25 MCG TABLET 50 MCG VAGINAL (21:01)
[2018-10-09] MEDS: Famotidine 20 MG Tablet PO (21:08)
[2018-10-10] MEDS: Lactated Ringers 1,000 ML 50 ML IV ×6 (00:22→22:41)
[2018-10-10] MEDS: fentaNYL-bupivacaine (epidural) 100 ML BAG EPIDURAL ×5 (01:10→20:22)
[2018-10-10] MEDS: Oxytocin 30 units/NS 500 ml 30 UNITS/500 ML IV.SOLN IV (01:25)
[2018-10-10] MEDS: proMETHazine 25 MG/ML Syringe IV (01:29)
[2018-10-10] MEDS: 0.9% Saline Lock 10 ML Syringe IV ×3 (01:31→21:10)
[2018-10-10] MEDS: 0.9% Normal Saline 100 ML IV.SOLN. INTRA-UTER (04:36)
--- NOTE | 2018-10-10 04:41 | PCM.PN.BLA ---
Progress Note fht 120 moderate variability reactive no decelerations category I tracing [place]: regular s/p 24 hours cytotec, now on pitocin and SROM clear fluid 1-2/70/-2. fb inserted. continue pit per protocol.
[2018-10-10] MEDS: Famotidine 20 MG Tablet PO ×2 (10:03→21:52)
[2018-10-10] MEDS: FLUoxetine 10 MG Capsule PO (10:03)
--- NOTE | 2018-10-10 13:31 | PCM.PN.BLA ---
Progress Note fht 150s moderate variability reactive occasional variable decelerations category I-II tracing overall reassuring [place]: regular now 5-6 cm 80 -2. will try different position changes, iupc replaced. continue pit per protocol. increased baseline but reassuring status no fevers.
[2018-10-10] MEDS: Ondansetron 4 MG/2 ML Vial IV (16:41)
[2018-10-10] MEDS: Amnioinfusion- 0.9% NS 1,000 ML IV.SOLN. INTRA-UTER (18:57)
[2018-10-10] MEDS: Acetaminophen 325 MG Tablet PO (22:58)
[2018-10-11] VITALS (39 sets, daily range): BP systolic 109–172; BP diastolic 64–108; PULSE 69–109; RESP 16–20; TEMP 35.9–37.8; O2SAT 93–99
[2018-10-11] MEDS: Ondansetron 4 MG/2 ML Vial IV (01:10)
[2018-10-11] MEDS: fentaNYL-bupivacaine (epidural) 100 ML BAG EPIDURAL (01:10)
[2018-10-11] MEDS: Magnesium Sulfate 20 GM/500 ML BAG IV ×3 (02:05→23:45)
[2018-10-11] MEDS: Sodium Citrate/Citric Acid 30 ML UDC PO (02:36)
--- NOTE | 2018-10-11 02:37 | PCM.PN.BLA ---
Progress Note fht 165-170 min-mod variability, occasional periodic variable. non reactive. cat II since starting magnesium sulfate for elevated bps. toco q 3-4 patient had severely elevated bps at 170-190 and magnesium started and before labetalol could be given bps dropped to 130s/80s. s/p 24 hours cytotec and 26 hours of pitocin, no cervical change in 4 hours and only 1 cm change in 10 hours. had been called 9-10 at one point but with attempted pushing she is now felt to be only 8 cm. decision for LTCS due to arrest of dilation recommended. suspected CPD. discussed with patient adequate CHRISTIANO would not recommend with next .
--- NOTE | 2018-10-11 02:46 | PCM.OPRPT ---
Problem List (1) Status: Acute Qualifiers: Comment: AFP- negative; anatomy US complete-recheck growth every 4 week. Weekly NSTs starting 2 weekly at 32 weeks. (2) , high-risk, maternal age 35+ multigravida Status: Acute Comment: PRR JAY 10/14/18 girl Ministerio growth us 36 weeks; 08/02/18 regrowth/anatomy consistent with dates- note 7cm fibroid re check and growth every 4 weeks weekly nst at 32 weeks - pt notified. (3) Uterine fibroid complicating care, baby not yet delivered Status: Acute Comment: Low and posterior fibroid near cervix Growth US q4 wk and weekly NST at 32 week (4) Abnormal blood coagulation profile Status: Chronic Comment: positive anticardiolipin antibody, recommendlovenox and baby ASA and MFM consult due to postiive antibody but no symptoms of syndrome (5) Arrest of dilation, delivered, current hospitalization Status: Acute Report of Operation Date of Procedure: 10/11/18 Pre-Operative Diagnosis: suspected cpd, aod 8 cm ftp Post-Operative Diagnosis: same plus uterine fibroid distorting pelvis with forehead presentation Surgery/Procedure Performed:: ltcs Description of Surgical Findings:: posterior 6 cm pedunculated firboid with inferior dense adhesions to sigmoid colon and cul de sac, no distortion of uterine cavity by fibroid executive chairman of the board: Dorothy Shelley Type of Anesthesia:: Spinal Fluids Replaced: crystalloid - Complications none Delivery Classification: FREIDA Final JAY: 10/14/18 Gestational age: 39 Weeks and 4 Days Indications for : Failure to Progress, Suspected cephalopelvic disproportion Description of Procedure: 33-year-old the patient presented at 39 and 1 for induction of labor secondary to antiphospholipid antibody positive and MFM recommendation for induction of labor. Patient was initially closed thick and high and after 24 hours of Cytotec she was unchanged. Pitocin was started and patient had spontaneous rupture of membranes within several hours and a Lopez bulb was placed which was in for 3 hours. Patient may change to 4 cm and progressed to 7 cm. After a total of 10 hours she had made change to 8 no cervical change within the last 4 hours and therefore the decision was made for a primary low transverse secondary to arrest of dilation and suspected CPD. Pitocin was given for 26 hours and rupture membranes for over 22 hours. Patient had an epidural and Lopez catheter in place and was placed in the dorsal supine position with leftward tilt. Patient was prepped and draped in the normal sterile fashion. Pfannenstiel skin incision was made with the scalpel and carried through to the underlying layer of fascia with the scalpel. Fascia was nicked in the midline and the incision extended laterally. The rectus bellies were dissected off superiorly and inferiorly with out complication both sharply and bluntly. The peritoneum was entered digitally. The incision was stretched and a low transverse uterine incision was made with the scalpel. The infant's head was delivered atraumatically followed by the anterior and posterior shoulders without complication the rest of the infant delivered. The cord was clamped and cut and the infant was handed off to awaiting nurse. The placenta was delivered spontaneously immediately following and was noted to be intact and have a three-vessel cord. The uterus was exteriorized cleared of all clots and debris, and the incision was closed in a double layer closure using #1 Monocryl. The uterus was returned to the maternal abdomen and gutters were cleared of all clots and debris. The ovaries and fallopian tubes were noted to be within normal limits. The peritoneum was closed with 3-0 Monocryl in a running fashion. Fascia was closed with 0 PDS in a running fashion. Subcutaneous tissue was copiously irrigated and the skin was closed with 3-0 Monocryl in a subcuticular fashion. Mepilex dressing were applied without complication. Patient was taken to recovery in stable condition. Amniotic Membrane Rupture Type: Artificial Amniotic Fluid Description: Cloudy Placenta Disposition: Sent to Pathology Specimen(s) sent to pathology: placenta Drain: Lopez to straight drain Fluids Replaced: crystalloid Cord Entanglement: None Nuchal Cord Compression: Without compression Cord Vessel Description: 3 Vessels Esitmated Blood Loss (ml): 600 Gender: Female (1 minute): 7 (5 minute): 7 - 8 at 7 minutes Delayed cord clamping: Yes Pre-op Antibiotic Given: Ancef 2 grams IV x1 Pt instructed on risks of surgery: Bleeding, Anesthesia Risks, Infection, Need for Future C-Sections, - - increased risk of dvt Complications: None - Admit VTE Documentation VTE Present on Admission: No VTE Mechan Device Prophylaxis: SCD's
--- NOTE | 2018-10-11 02:55 | PLAC_PTH ---
PATIENT: DAYAN RADER LOC: [facility] U#:[id number] AGE/SX: 33/F ROOM: [facility] RE10/08/[address]: Dr. Naomi Villalta MD : 1985 BED: 1 DIS: 10/13/2018 SPEC #: [id number] RECD: 10/11/18 05:14 STATUS: LYLY RECatalina #: [id number] CYNTHIA: 10/11/18 02:[address]: Naomi Villalta DEPT: SURGICAL PATHOLOGY RECD BY: Ellie Braxton ENTERED: 10/11/18 09:14 SP TYPE: PLACENTA OTHR DR: No Primary Care Phys Tissues: Placenta, NOS Procedures: Surgery Specimen Level V HEADER OPERATION: section PRE-OP DIAGNOSIS: Preeclampsia, arrest of dilation TISSUE SUBMITTED: Placenta MICROSCOPIC DIAGNOSIS Placenta: Placental disc - third trimester placenta (295 gm). Acute vasculitis of subamniotic blood vessels. Increased intervillous and perivillous fibrin deposition. Membranes - acute chorioamnionitis. Umbilical cord - three blood vessels and acute funisitis. JOSE:yuriy 10/13/18 MICROSCOPIC DESCRIPTION Slides are reviewed. GROSS DESCRIPTION SPECIMEN: PLACENTA / CLINICAL INFORMATION: A. Weight: 2.578 kg B. Gestational Age: 39 weeks C. Sex: Female PLACENTAL WEIGHT (POST FIXATION): 295 gm PLACENTAL DIMENSIONS: 19 x 16 x 2 cm PLACENTAL SHAPE: Usual ovoid PLACENTAL WEIGHT FOR GESTATIONAL AGE: <10th percentile MEMBRANES - Present A. Insertion: Marginal B. Site of rupture from edge: Distance of rupture cannot be assessed due to fragmented nature of the membranes. C. Color of membrane: The membranes are corrales and fragmented. D. Abnormalities: None UMBILICAL CORD - Present A. Color: Corrales-bryan B. Insertion: The umbilical cord is inserted in the membranes and partially disrupted. C. Length: 17 cm D. Diameter: Up to 1.2 cm E. Number of vessels: Three F. Abnormalities: None PLACENTAL DISC - Present A. Color of surface: Corrales-bryan B. surface abnormalities: None C. Maternal cotyledons: Intact with minimal tears D. Attached retro placental clot: No clot E. Cut surface: Dark red and spongy F. Lesions: None G. Separate clot: Absent SECTIONS SUBMITTED: 1. Membrane roll 2. Cord, maternal end 3. Cord, end 4. Placental disc, and maternal surfaces 5. Placental disc, and maternal surfaces 6. Placental disc, and maternal surfaces SJ:yuriy 10/12/18 TC:2 CPT: 67090
[2018-10-11] MEDS: Cefazolin 2 GM in 0.9% Normal Saline 100 ML IV (03:02)
[2018-10-11] MEDS: Oxytocin 30 units/NS 500 ml 30 UNITS/500 ML IV.SOLN 167 UNITS IV (03:26)
[2018-10-11] MEDS: Carboprost Tromethamine 250 MCG/ML Ampul IM (03:27)
--- NOTE | 2018-10-11 04:43 | NURSING ---
0400 petichiae noted to left upper thigh. aware. verbal order for stat CBC and CMP, plan to hold toradol until CBC results. okay to give toradol if platelets are over 100K. if under 100K plan to update Provider. verbal order also received to continue with magnesium 2 G and hypertensive protocol with first line drug Labetalol.
[2018-10-11 04:46] LABS: ALB/GLOB Ratio 0.6 RATIO (0.9-2.4); AST(SGOT) 26 U/L (15-37); Alanine Aminotransfer ALT/SGPT 18 U/L (13-56); Albumin, Serum 2.1 g/dL (3.2-5.0); Alkaline Phosphatase 148 U/L (45-117); Anion Gap 10 (5-15); BUN 6 mg/dL (7-18); BUN/Creat Ratio 7.7 RATIO (10-20); Chloride 111 mmol/L (98-107); Creatinine, Serum 0.78 mg/dL (0.55-1.02); EST Glomerular Filtration Rate 89 mL/min (>60); Est Glom Filt Rate - Afr Amer 108 mL/min (>60); Estimated Creatinine Clearance 86.93 ml/min; Globulin 3.4 g/dL (2.2-4.2); Glucose 106 mg/dL (74-106); Potassium 3.3 mmol/L (3.5-5.1); Protein, Total 5.5 g/dL (6.4-8.2); Sodium Level 141 mmol/L (136-145)
[2018-10-11 04:52] LABS: Hematocrit 38.4 % (37-47); Hemoglobin 12.5 g/dl (12.0-15.0); Mean Corp Hgb Conc 32.6 g/gl (32-36); Mean Corpuscular Hgb 30.2 pg (27.0-32.0); Mean Corpuscular Volume 92.8 fL (81-99); Platelet Count 94 K/mm3 (150-450); RBC Distribution Width CV 13.3 % (11.6-14.6); Red Blood Count 4.14 M/mm3 (4.2-5.4); Scan Indicated on CBC? Y/N NO; White Blood Count 26.3 K/mm3 (4.4-11.0)
[2018-10-11] MEDS: Ketorolac 30 MG/ML Syringe IV ×4 (05:04→23:46)
[2018-10-11] MEDS: Labetalol 100 MG Tablet PO ×2 (05:18→22:07)
[2018-10-11 05:28] LABS: Pathology Specimen OB SEE PATHOLOGY REPORT
[2018-10-11] MEDS: FLUoxetine 10 MG Capsule PO (10:00)
[2018-10-11] MEDS: Lactated Ringers 1,000 ML 100 ML IV (10:00)
[2018-10-11] MEDS: Famotidine 20 MG Tablet 40 MG PO (10:01)
[2018-10-11] MEDS: Prenatal Vits Tablet 1 TABLET PO (12:11)
--- NOTE | 2018-10-11 12:29 | NURSING ---
Dr. Villalta on unit. Asked about giving the Lovenox now due to platelets being 94,000. said yes to give Lovenox now. Asked if she wanted to get more blood work earlier than 0600 tomorrow and she stated no, she feels pt is stable and tomorrow would be fine. Also updated her on current blood pressure and pt having clonus on and off last night and just now on my assessment at noon.
[2018-10-11] MEDS: Enoxaparin 40 MG/0.4 ML Syringe SC (12:40)
--- NOTE | 2018-10-11 16:40 | NURSING ---
Received report from Tiffany Darby RN. I will assume care of patient at this time.
--- NOTE | 2018-10-11 22:06 | NURSING ---
2206 Pt. clonus assessed in both feet. Left foot clonus absent, right foot one beat noticed. Magnesium assessment continued and right foot clonus reassessed and appeared to be absent. Will continue to monitor. Vital signs stable.
[2018-10-11] MEDS: Acetaminophen 500 MG Tablet 1000 MG PO (22:08)
[2018-10-11] MEDS: 0.9% Saline Lock 10 ML Syringe IV (23:45)
[2018-10-12] VITALS (9 sets, daily range): BP systolic 94–122; BP diastolic 57–78; PULSE 76–82; RESP 16–18; TEMP 36.6–36.7; O2SAT 95–96
[2018-10-12] MEDS: Ketorolac 30 MG/ML Syringe IV ×3 (05:14→18:11)
[2018-10-12] MEDS: 0.9% Saline Lock 10 ML Syringe IV ×3 (05:14→18:15)
[2018-10-12 05:42] LABS: Hematocrit 30.7 % (37-47); Hemoglobin 9.9 g/dl (12.0-15.0); Mean Corp Hgb Conc 32.2 g/gl (32-36); Mean Corpuscular Hgb 29.6 pg (27.0-32.0); Mean Corpuscular Volume 91.6 fL (81-99); Mean Platelet Vol. 12.2 fl (6.2-12.0); Platelet Count 95 K/mm3 (150-450); RBC Distribution Width CV 13.8 % (11.6-14.6); RBC Distribution Width SD 45.4 fl (35.1-43.9); Red Blood Count 3.35 M/mm3 (4.2-5.4); White Blood Count 22.3 K/mm3 (4.4-11.0)
[2018-10-12 05:44] LABS: Scan Indicated on CBC? Y/N NO
--- NOTE | 2018-10-12 07:47 | PCM.PN.OB ---
Patient Problems: Active and Suspected Problems (Last Reviewed 10/05/18 @ 11:25 by Melissa Graham) Arrest of dilation, delivered, current hospitalization (Acute) Subjective: doing well no complaints pain controlled no CP SOB N V, epidural still in place due to thrombocytopenia, tolerating po lochia moderate, going well - Physical Exam General: Alert, Oriented x3 Abdomen: Soft, Non-Distended, - - Minimal tenderness with exam, FF below U, dressing dry and intact Vital Signs Temp Pulse Resp BP Pulse Ox 98.0 F 76 16 106/68 95 10/12/18 01:30 10/12/18 03:42 10/12/18 03:42 10/12/18 03:42 10/12/18 03:42 Oxygen Delivery Method Room Air Weight: 183 lb 12.8 oz Body Mass Index (BMI) 31.5 Intake and Output for Last 24 Hours 10/10/18 10/11/18 10/12/18 23:59 23:59 23:59 Intake Total 4912 / 4912 4668 / 4668 611 / 611 Output Total 1400 / 1400 4001 / 4001 600 / 600 Balance 3512 / 3512 667 / 667 Laboratory Tests Past 24 Hrs 10/12/18 05:25 WBC 22.3 H RBC 3.35 L Hgb 9.9 L Hct 30.7 L MCV 91.6 MCH 29.6 MCHC 32.2 RDW 13.8 RDW Differential 45.4 H Plt Count 95 L MPV 12.2 H Medical Necessity - Tobacco Use Smoking Status: Former smoker Assessment/Plan All Active Problems (Last Reviewed 10/05/18 @ 11:25 by Melissa Graham) Arrest of dilation, delivered, current hospitalization (Acute) C. difficile colitis (Acute) Intractable vomiting (Acute) Hypokalemia (Acute) Elevated lipase (Acute) Uterine fibroid complicating care, baby not yet delivered (Acute) (Acute) , high-risk, maternal age 35+ multigravida (Acute) Heartburn (Acute) s/p LTCS PPD # 1 1. routine post care 2. breast feeding- support given 3. rh positive 4. rubella immune
[2018-10-12] MEDS: Senna/Docusate Sodium 1 Tablet PO (10:32)
[2018-10-12] MEDS: Prenatal Vits Tablet 1 TABLET PO (10:33)
[2018-10-12] MEDS: FLUoxetine 10 MG Capsule PO (10:33)
[2018-10-12] MEDS: Labetalol 100 MG Tablet PO ×2 (10:34→22:02)
[2018-10-12] MEDS: Acetaminophen 500 MG Tablet 1000 MG PO (10:50)
[2018-10-12] MEDS: Famotidine 20 MG Tablet 40 MG PO (10:50)
[2018-10-12] MEDS: Enoxaparin 40 MG/0.4 ML Syringe SC (10:52)
--- NOTE | 2018-10-12 11:22 | NURSING ---
Epidural catheter removed @ 1045. Tip intact with removal.
--- NOTE | 2018-10-12 13:29 | NURSING ---
agree with student's assessments.
[2018-10-12] MEDS: oxyCODONE 5 MG Tablet PO ×2 (14:51→19:42)
--- NOTE | 2018-10-12 17:45 | NURSING ---
this AM observed student remove epidural catheter without difficulty
[2018-10-13] MEDS: Ketorolac 30 MG/ML Syringe IV (00:49)
[2018-10-13] MEDS: 0.9% Saline Lock 10 ML Syringe IV (00:49)
[2018-10-13 01:45] VITALS: BP 130/83; PULSE 79; RESP 18; TEMP 36.9
[2018-10-13] MEDS: Naproxen 250 MG Tablet PO (06:12)
[2018-10-13] MEDS: Senna/Docusate Sodium 1 Tablet PO (07:40)
[2018-10-13] MEDS: oxyCODONE 5 MG Tablet PO (07:41)
[2018-10-13 07:44] VITALS: BP 134/77; PULSE 80; RESP 16; TEMP 36.4; O2SAT 99
--- NOTE | 2018-10-13 08:00 | PCM.PN.OB ---
Patient Problems: Active and Suspected Problems (Last Reviewed 10/05/18 @ 11:25 by Melissa Graham) Arrest of dilation, delivered, current hospitalization (Acute) Subjective: doing well no complaints pain controlled no CP SOB N V ambulating well tolerating po lochia moderate, going well Home today - Physical Exam General: Alert, Oriented x3 Abdomen: Soft, Non-Distended, - - Dressing dry and intact. Minimal tender with exam. FF below U Vital Signs Temp Pulse Resp BP Pulse Ox 97.6 F L 80 16 134/77 H 99 10/13/18 07:44 10/13/18 07:44 10/13/18 07:44 10/13/18 07:44 10/13/18 07:44 Oxygen Delivery Method Room Air Weight: 183 lb 12.8 oz Body Mass Index (BMI) 31.5 Intake and Output for Last 24 Hours 10/11/18 10/12/18 10/13/18 23:59 23:59 23:59 Intake Total 4668 / 4668 1611 / 1611 Output Total 4001 / 4001 800 / 800 Balance 667 / 667 811 / 811 Medical Necessity - Tobacco Use Smoking Status: Former smoker Assessment/Plan All Active Problems (Last Reviewed 10/05/18 @ 11:25 by Melissa Graham) Arrest of dilation, delivered, current hospitalization (Acute) C. difficile colitis (Acute) Intractable vomiting (Acute) Hypokalemia (Acute) Elevated lipase (Acute) Uterine fibroid complicating care, baby not yet delivered (Acute) (Acute) , high-risk, maternal age 35+ multigravida (Acute) Heartburn (Acute)
--- NOTE | 2018-10-13 08:03 | DCINST_ITS ---
Additional Instructions: If you experience any of the following, contact your healthcare provider. * Bleeding that soaks a pad every hour for 2 hours * Fever 100.4 or higher * Unrelieved incision or abdominal pain * Swelling, redness, discharge or bleeding from your incision or episiotomy site * Your incision begins to separate * Problems urinating (including inability to urinate or burning while urinating). * Visual changes * Severe headache * Flu-like symptoms * Pain or redness in one of both of your breasts * Pain, warmth, tenderness or swelling in your legs, especially the calf area * Frequent nausea and vomiting * Symptoms of depression or anxiety If you experience any of the following, call 911 or go to the nearest Emergency Room. * Chest pain * Problems breathing * Seizure activity * Partial or complete paralysis of a body part, slurred speech, weakness or drooping of the face, or a sudden inability to walk or hold your balance Allergies/Adverse Reactions: Allergies welbutrin Allergy (Mild, Uncoded 10/05/18 11:25) Other Medications to take at Discharge Aspirin [Aspir-Low] 81 mg PO DAILY 07/24/18 Famotidine [Pepcid] 40 mg PO DAILY 07/24/18 Fluoxetine [Prozac] 10 mg PO DAILY 07/24/18 Acetaminophen [Tylenol Extra Strength] 500 mg PO Q6H PRN PRN 09/09/18 Pnv No.95/Ferrous Fum/Folic AC [ Formula] 1 ea PO DAILY 09/09/18 Heparin Sodium,Porcine [Heparin Sodium] 5,000 unit SC Q12H 10/08/18 Naproxen 500 mg PO Q8 PRN #60 tablet 10/13/18 Oxycodone HCl/Acetaminophen [Percocet 5/325] 1 - 2 tablet PO Q4H PRN PRN 7 Days #28 tablet 10/13/18 The following prescriptions were given: Oxycodone HCl/Acetaminophen [Percocet 5/325] 1 - 2 tablet PO Q4H PRN PRN 7 Days #28 tablet PRN Reason: Pain Naproxen 500 mg PO Q8 PRN #60 tablet PRN Reason: Pain Follow-Up: Call to make an appointment with your doctor for an incision check in 1-2 weeks. You will also need a 6 week post- follow up appointment. Test results from this visit will be discussed in further detail at your follow- up appointment, if applicable. Primary Care Physician: Care Physician,No Primary [Primary Care Provider] -
== END 2018-10-13 09:30 | disposition home or self-care (01) | DRG 787 ==
PROVIDERS: Admitting Provider Obstetrics & Gynecology; Referring Provider Obstetrics & Gynecology; Visit Provider Obstetrics & Gynecology
DX: O62.2 Other uterine inertia (principal); O36.0130 Maternal care for anti-D [Rh] antibodies, third trimester, not applicable or unspecified; O99.113 Other diseases of the blood and blood-forming organs and certain disorders involving the immune mechanism complicating pregnancy, third trimester; D68.61 Antiphospholipid syndrome; A04.72 Enterocolitis due to Clostridium difficile, not specified as recurrent; O33.0 Maternal care for disproportion due to deformity of maternal pelvic bones; O42.02 Full-term premature rupture of membranes, onset of labor within 24 hours of rupture; O99.89 Other specified diseases and conditions complicating pregnancy, childbirth and the puerperium; R12 Heartburn; R79.1 Abnormal coagulation profile; O99.343 Other mental disorders complicating pregnancy, third trimester; F32.9 Major depressive disorder, single episode, unspecified; F41.9 Anxiety disorder, unspecified; O13.4 Gestational [pregnancy-induced] hypertension without significant proteinuria, complicating childbirth; O34.13 Maternal care for benign tumor of corpus uteri, third trimester; O99.613 Diseases of the digestive system complicating pregnancy, third trimester; D25.9 Leiomyoma of uterus, unspecified; Z3A.39 39 weeks gestation of pregnancy; Z37.0 Single live birth; Z87.891 Personal history of nicotine dependence
CPT/HCPCS: 59025; 59050; 80053; 85025; 85027; 86850; 86900; 88307; 99218; J7030; J7120; A4216; G0378; J2405

== ENCOUNTER → 2019-06-27 14:25 | Outpatient (CLI) | payer BC, SELFPAY ==
[2019-05-09 10:16] VITALS: BMI 31.5
[2019-06-30 16:34] LABS: Age Gdln ACOG Testing 30-65 (.)
[2019-07-01 15:45] LABS: HPV APTIMA, High Risk Negative (Negative)
[2019-07-01 16:46] LABS: HPV Reflexed? YES, CHARGE PATIENT
== END ==
PROVIDERS: Visit Provider Advanced Practice Midwife
DX: Z12.4 Encounter for screening for malignant neoplasm of cervix (principal)
CPT/HCPCS: 87624; 88175; G0145

== ENCOUNTER 2019-08-22 05:48 | Day surgery (SDC) | payer BC, SELFPAY ==
[2019-05-09 10:16] VITALS: BMI 31.5
[2019-08-13 10:43] LABS: Hematocrit 44.8 % (37-47); Hemoglobin 15.3 g/dL (12.0-15.0); Mean Corp Hgb Conc 34.2 g/dL (32-36); Mean Corpuscular Hgb 31.1 pg (27.0-32.0); Mean Corpuscular Volume 91.1 fL (81-99); Mean Platelet Vol. 11.5 fl (6.2-12.0); Platelet Count 189 K/mm3 (150-450); RBC Distribution Width CV 12.5 % (11.6-14.6); RBC Distribution Width SD 41.4 fl (35.1-43.9); Red Blood Count 4.92 M/mm3 (4.2-5.4); White Blood Count 8.7 K/mm3 (4.4-11.0)
[2019-08-13 10:46] LABS: Internal QC Validated? YES +Cl - CLEAR BKGD; Pregnancy, Urine Negative Negative
[2019-08-13 10:52] LABS: Prothrombin Time (Protime)PT. 13.1 SECONDS (11.7-14.9)
[2019-08-13 10:53] LABS: Partial Thromboplast Time 31.3 Seconds (24.1-36.2)
[2019-08-13 11:14] LABS: Internal QC Validated? YES +Cl - CLEAR BKGD; Pregnancy, Serum, hCG Quali. NEGATIVE Negative
[2019-08-13 11:21] LABS: AST(SGOT) 12 U/L (15-37); Alanine Aminotransfer ALT/SGPT 25 U/L (13-56); Albumin, Serum 3.7 g/dL (3.2-5.0); Alkaline Phosphatase 85 U/L (45-117); Bilirubin, Direct 0.08 mg/dL (0.00-0.30); Creatinine, Serum 0.95 mg/dL (0.55-1.02); EST Glomerular Filtration Rate 71 mL/min (>60); Est Glom Filt Rate - Afr Amer 86 mL/min (>60); Globulin 3.5 g/dL (2.2-4.2); Protein, Total 7.2 g/dL (6.4-8.2)
--- NOTE | 2019-08-21 21:37 | HP.PCM_ITS ---
History and Physical Date of Admission: 08/22/19 Surgical History and Physical Mirna Cleveland, a 34 year old female 1 0 0 0 1, presents for RAVH/BS on July at 7:30. -- Submucous Fibroids, Menorrhagia, Dyspareunia -- Left pedunculoated fibrod measuring 6.5 x 4.9 x 6cm, anterior submucosal fibroid [id number] 1.5 x 1.3 x 1.5cm noted; pt states has had vasectomy, experiences occasional pelvic bloating and discomfort and dyspareunia she beliees is a result of fiboids; reassured of likely ovarian presevation. Submucous fibroids which began Over a year ago. Mirna claims it started gradually It occurs All the time. It is located in the Uterus. Severity is moderate. It is aggravated by intercourse causes pain over pedunculated fibroid. Associated signs and symptoms are dyspareunia. Additional comments are: heavy bleeding so she must take Depoprovera; desires to stop this medication. MEDICATIONS HISTORY: Patient is also takin. dicyclomine 20 mg tablet, One tablet by mouth as needed 2. Linzess 145 mcg capsule, One capsule by mouth once daily 3. medroxyprogesterone 150 mg/mL intramuscular suspension, once every 12 to 13 weeks 4. omeprazole 40 mg capsule,delayed release, One capsule by mouth once daily 5. Prozac 10 mg capsule, One pill by mouth once a day ALLERGIES: Wellbutrin, Vomiting Infections - Chicken pox and Pneumonia (not hospitalized) Illnesses - Anxiety, Depression, Heartburn, IBS Accidents - None Hospitalizations - Childbirth and see surgery Review of Systems: GENERAL - Denies fever, or chills SKIN - Denies skin changes EYES - Denies visual changes EARS - Denies difficulty hearing NOSE - Denies nasal congestion or bleeding MOUTH - Denies sore throat or difficulty swallowing NECK - Denies pain or swelling RESPIRATORY - Denies shortness of breath or wheezing CARDIOVASCULAR - Denies palpitations or chest pain GASTROINTESTINAL - Denies nausea, vomiting, diarrhea, constipation GENITOURINARY - Denies dysuria, frequency of urination, incontinence of urine MUSCULOSKELETAL - Denies joint or muscle pain NEUROLOGICAL - Denies localized numbness or weakness PSYCHIATRIC - Denies depression or anxiety ENDOCRINE - Denies heat or cold intolerance, weight loss or gain HEMATO-IMMUNOLOGIC - Denies excesive bleeding with cuts SOCIAL HISTORY: Alcohol Use - occasionally Smoking - denies smoking Diet - balanced Diet Lifestyle - Exercise - regular Seat Belt Use - always Employer - [employer] in [place] (remotes from home) 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 [employer] Illicit Drug Use - denies use of street drugs Sexual Activity - ACTIVE ONE PARTNER Residence - Lives w/ and their child Spouse-Sig Other Name - Eleazar Cleveland Spouse-Sig Other 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 10/11/2018 C/Section ; Dr Villalta - FTP 2. Excision skin Ca R arm PHYSICAL EXAM BP- 104/68 Sitting, Left arm, large cuff Weight- 168.86342 lbs Height- 64.5 inch BMI:28.45 CONSTITUTIONAL - NAD, well nourished, and well developed SKIN - No rash, lesions, or ulcers HEENT - Normocephalic, PERRLA, EOMI NECK - No nodes, no nuchal rigidity and thyroid normal size and texture LYMPH NODES - Palpation of lymph nodes in neck and groins within normal limits LUNGS - CTA x2 without wheezes, crackles or rales CARDIAC - Regular rate and rhythm without rubs, murmurs, or gallops BREAST - No dominant masses, no tenderness, no axillary adenopathy, no nipple discharge, no skin changes ABDOMEN - Without hepatosplenomegaly, distention, masses, rebound, or guarding; normal bowel sounds; no hernias EXTREMITIES - No edema or calf tenderness NEUROLOGICAL - Cranial nerves II-XII grossly intact PSYCHIATRIC - A and O to time, place, person, mood and affect DETAILED PELVIC EXAM External Genital Vagina - non-tender without lesions Urethra/Urethral Meatus - non-tender Bladder - non-tender Vagina - vaginal umaña are pink and moist without loss of rugae and no evidence of atropy Cervix - without cervical motion tenderness and has normal size and features without evident lesions Uterus - 8 cm in size, mobile and nontender Adnexa - clear without masses or tenderness ASSESSMENT/PLAN: 1. Dyspareunia and Submucous Leiomyoma Uterus Causing pelvic fullness and pain with IC and movements such as bending over. Has both submucous fibroids and a large pedunculated fibroid. Desires to stop depoprovera and some relief from the pain she has been having due to these fibroids. Discussed options for treatment and pt desires proceeding with RAVH/BS. Discussed RBAs at length including possibility of not being able to complete the procedure vaginally and all questions were answered.
[2019-08-22] VITALS (12 sets, daily range): BP systolic 109–131; BP diastolic 74–82; PULSE 70–83; RESP 16–18; TEMP 36.6–37.1; O2SAT 95–100; BMI 28.8; BMI 28.3
[2019-08-22] MEDS: Lactated Ringers 1,000 ML 100 ML IV (06:41)
[2019-08-22] MEDS: Lactated Ringers 1,000 ML 15 ML IV (06:45)
[2019-08-22 07:03] LABS: Internal QC Validated? YES +Cl - CLEAR BKGD; Pregnancy, Urine Negative Negative
--- NOTE | 2019-08-22 07:30 | HYST_PTH ---
PATIENT: DAYAN RADER LOC: [facility] [place] U#:[id number] AGE/SX: 34/F ROOM: RE08/22/[address]: Dr. Omar Shah MD : 1985 BED: DIS: 08/23/2019 SPEC #: [id number] RECD: 08/22/19 13:25 STATUS: LYLY MATTHEW #: [id number] CYNTHIA: 08/22/19 07:[address]: Omar Shah DEPT: SURGICAL PATHOLOGY RECD BY: Ellie Braxton ENTERED: 08/22/19 14:53 SP TYPE: HYSTERECT OTHR DR: MD Dr. Rony Roberson MD No Primary Care Phys Tissues: Uterus, NOS Procedures: Surgery Specimen Level V HEADER OPERATION: Lap robotic hysterectomy, bilateral salpingectomy PRE-OP DIAGNOSIS: Dyspareunia and submucous leiomyoma uterus TISSUE SUBMITTED: Uterus and bilateral fallopian tubes and fibroid MICROSCOPIC DIAGNOSIS Uterus, bilateral fallopian tube and fibroid, hysterectomy and bilateral salpingectomy: Cervix - chronic inflammation. Endometrium - inactive endometrium and focal changes consistent with exogenous hormone effects. Myometrium - leiomyomas (1 and 7 cm in greatest dimension). See comment. Focal adenomyosis. Bilateral fallopian tubes - no pathologic diagnosis. SJ:rg 08/23/19 COMMENT The larger leiomyoma shows hyalinization, calcification and extensive area of infarction. The smaller leiomyoma shows chronic inflammation, histiocytic reaction and hyalinization. MICROSCOPIC DESCRIPTION Slides are reviewed. GROSS DESCRIPTION Received in fixative is one container labeled with the patient's name and designated uterus and bilateral fallopian tubes and fibroid. The specimen consists of a hysterectomy specimen consisting of uterus with attached bilateral fallopian tubes, detached cervix and detached nodular mass, consistent with fibroid. The anterior serosal surface shows ragged, matted area most likely site of detached lobular mass. The uterus with cervix weighs 55 gm. The detached cervix measures 2 x 2.5 x 1.5 cm. The ectocervical mucosa is unremarkable. The external os is circular in contour and patulous. The endocervical canal measures 1 cm in length and the endocervical mucosa is unremarkable. The body of the uterus measures from fundus to line of resection 5.5 cm transversely and 3.5 cm anterior-posteriorly. The triangular endometrial cavity measures 4.5 cm in length and 3 cm in width. The endometrium is gnuderson, glistening without any mass lesion and measures <0.1 cm in thickness. Sections of the uterine wall reveal an ill-defined nodular mass measuring 1 cm in greatest diameter. The uterine wall measures up to 2 cm in thickness. The detached nodular mass weighs 109 gm and measures 7 x 5.5 x 5 cm. Sections of the mass reveal grayish cut surfaces. Both fallopian tubes are similar appearance and the right fallopian tube measures 7.5 cm in length and 0.5 cm in diameter. The fimbrial end is identified. Sections reveal unremarkable cut surfaces. The left fallopian tube measures 7 cm in length and 0.5 cm in diameter. The fimbrial end is identified. Bulk Plant Manager sections are submitted in 10 cassettes as follows: 1 - anterior cervix, 2 - posterior cervix, 3 & 4 - anterior uterine wall, 5 & 6 - posterior uterine wall, 7 & 8 - detached nodular mass 9 - right fallopian tube, 10 - left fallopian tube. / JOSE:yuriy 08/22/19 TC:1 CPT: 41710
[2019-08-22] MEDS: Ropivacaine 0.5% 30 ML Vial (08:00)
--- NOTE | 2019-08-22 09:53 | PCM.OPRPT ---
Report of Operation Date of Procedure: 08/22/19 Pre-Operative Diagnosis: Submucous Fibroids, Menorrhagia, Dyspareunia Post-Operative Diagnosis: Submucous And Pedunculated fibroids, Menorrhagia, Dyspareunia, Adhesions Surgery/Procedure Performed:: Robotic Assisted Vaginal Hysterectomy, Bilateral Salpingectomy, Lysis of Adhesions Description of Surgical Findings:: 8 cm uterus with normal fallopian tubes and ovaries. 8 cm pedunculated posterior fibroid with dense adhesions to the posterior cul-de-sac. Obliterated cervix. neuroscience specialist: Faviola Delgado Type of Anesthesia:: General - Endotracheal Anesthesiologist: Elda Maravilla Specimen's removed: Uterus and bilateral fallopian tubes and pedunculated fibroid Drains: Lopez to straight drain Estimated Blood Loss (mL): Minimal Fluids Replaced: Crystalloid Description of Procedure: Surgeon: Omar Shah MD, FACOG Indication: This is a 34 year old patient who has been having problems with pelvic pain and menorrhagia as well as dyspareunia. She has known uterine fibroids. Conservative measures have not been helpful. The patient has been counseled regarding the risks, benefits and alternatives of this procedure including the possibility of bleeding, infection, and injury to surrounding structures such as bowel bladder and all questions were answered. She understands that if BSO is needed that she will need to be on HRT for an indefinite period of time. Procedure: Pt taken to the operating room where, after induction of general anesthesia, the patient was prepped and draped in the usual sterile fashion and placed on a non-slip Huggy-u-vac device. Trendelenburg test was satisfactory. Bladder was drained of urine with a Lopez catheter which was left in place. Anterior cervix grasped and cervix was dilated to about 3-4 mm. Uterus sounded to 12 cms. 0-Vicryl suture was placed at the 3:00 and 9:00 position of the the extremely attenuated cervix. A small [employer] Vice President Uterine Manipulator was then placed in the uterus and attention was turned to the laparoscopic portion of the procedure. Ropivocaine 0.5% was injected approximately 2-3 cm superior to the umbilicus and an 8 mm robotic camera port was introduced directly with intraperitoneal placement confirmed with CO2 insufflation. The balloon from the manipulator was noted to have perforated through the fundus of an approximately an 8 cm uterus but it was felt that it would provide adequate manipulation to proceed with the surgery and there was no bleeding from the fundus of the uterus. 8 mm robotic side ports were introduced under direct visualization approximately 10 cm lateral and 2 cm inferior to the umbilical port. A 5 mm left upper quadrant port was introduced and airseal insufflation with CO2 was started. The above findings were noted. Robot was docked without difficulty and attention turned to the robotic portion of the procedure. Approximately 30 cc of Ropivicaine was used. The 8 cm posterior fibroid was freed from the posterior cul-de-sac using blunt and sharp dissection. Bilateral mesosalpinx were ligated with 35 king bipolar coagulation to the level of the round ligament. The posterior aspect of the cervix was identified and then opened for about 1 cm using 25 watt monopolar cautery. A densely adhered bladder flap was opened and divided to the level of the round ligaments using monopolar cautery. Progressive bites were then ligated on each side of the cervix with 35 king bipolar cautery to the uterine arteries. The anterior vaginal mucosa was entered and cervix circumscribed with monopolar cautery. Uterus and attached tubes were removed through the vagina. Vaginal cuff was closed first with 0-Vicryl Diogenes stitches placed at each angle followed by closure of the mid-cuff with 0-Monocryl V-lock suture in two layers. Pelvis was copiously irrigated with saline and some oozing was noted so Tamia was placed to help with postoperative hemostasis. Urine was noted to be clear. Robot was undocked and trocars were removed with as much gas as possible. Incisions were closed with 4-0 Monocryl subcuticular sutures and incisions covered with steri-strips. The patient tolerated the procedure well and was taken to the recovery room in satisfactory condition. Sponge, instruments and needle counts were all correct. There were no apparent complications of the surgery. Cefotan 2 gms IV was given prior to the procedure. Estimated Blood Loss: Minimal Specimen to Pathology: Uterus and bilateral fallopian tubes Grafts/Implants Used: None - Complications None - Admit VTE Documentation VTE Present on Admission: Yes VTE Mechan Device Prophylaxis: SCD's VTE Pharm Prophylaxis ordered?: Yes
--- NOTE | 2019-08-22 10:04 | DCINST_ITS ---
Discharge Diet: No Restrictions Discharge Activity: Return to Normal Activity, May Not Drive - while taking narcotic pain medications., May Shower, May Take a Tub Bath May resume sexual activity in: 6-8 weeks Call your doctor if your incision/area has: Continuous Slow Oozing, Sudden Inc reased Bleeding, Increased Pain/ Swelling, Increased Redness, Foul Smelling Discharge Call your doctor if you observe: Fever of 101 or Higher, Inability to urinate, Inability to have a bowel movement, Using more than one pad per hour Allergies/Adverse Reactions: Allergies welbutrin Allergy (Mild, Uncoded 08/12/19 13:45) Other Medications to take at Discharge Acetaminophen [Tylenol Extra Strength] 500 mg PO Q6H PRN PRN 09/09/18 Fluoxetine HCl [Prozac] 10 mg PO DAILY 08/12/19 Linaclotide [Linzess] 72 mcg PO DAILY 08/12/19 Melatonin/Pyridoxine HCl (B6) [Melatonin 3 mg Tablet] 2 ea PO QHS 08/12/19 Multivitamin with Minerals [Multiple Vitamin] 1 ea PO DAILY 08/12/19 Omeprazole 20 mg PO QHS 08/12/19 Docusate Sodium [Colace] 100 mg PO BID PRN PRN #60 cap 08/22/19 Oxycodone [Oxyir] 5 mg PO Q6H PRN PRN 7 Days #14 tablet 08/22/19 The following prescriptions were given: Docusate Sodium [Colace] 100 mg PO BID PRN PRN #60 cap PRN Reason: Constipation Transmission Status: Pending to [facility]AN[facility] CHOWDHUR[facility] Oxycodone [Oxyir] 5 mg PO Q6H PRN PRN 7 Days #14 tablet PRN Reason: Pain Score 6-1010 Transmission Status: Received by [facility]AN[facility] CHOWDH[facility] [address] Primary Care Physician: Rony Ibarra MD [Primary Care Provider] - Test Results: Test results from this visit will be discussed in further detail at your follow- up appointment, if applicable. Please Follow Up With: Omar Shah MD When: 2 to 3 weeks
[2019-08-22] MEDS: Dextrose 5%-Lactated Ringers 1,000 ML 150 ML IV (12:07)
[2019-08-22] MEDS: FLUoxetine 10 MG Capsule PO (12:11)
[2019-08-22] MEDS: oxyCODONE 5 MG Tablet PO ×2 (12:11→18:43)
[2019-08-22] MEDS: Ondansetron 4 MG/2 ML Vial IV (14:38)
[2019-08-22] MEDS: Ketorolac 30 MG/ML Syringe IV ×2 (14:40→21:06)
[2019-08-22] MEDS: Enoxaparin 30 MG/0.3 ML Syringe SC (18:02)
[2019-08-22] MEDS: Acetaminophen 500 MG Tablet 1000 MG PO (19:31)
[2019-08-22] MEDS: 0.9% Saline Lock 10 ML Syringe IV (21:05)
[2019-08-22] MEDS: Pantoprazole Sodium 20 MG Tablet PO (21:06)
[2019-08-23] MEDS: oxyCODONE 5 MG Tablet PO (00:45)
[2019-08-23] MEDS: 0.9% Saline Lock 10 ML Syringe IV (02:42)
[2019-08-23] MEDS: Ketorolac 30 MG/ML Syringe IV (02:42)
[2019-08-23 02:45] VITALS: BP 108/66; PULSE 67; RESP 16; TEMP 36.7; O2SAT 97
[2019-08-23] MEDS: Acetaminophen 500 MG Tablet 1000 MG PO (06:16)
[2019-08-23 06:31] LABS: Hematocrit 36.9 % (37-47); Hemoglobin 12.2 g/dL (12.0-15.0); Mean Corp Hgb Conc 33.1 g/dL (32-36); Mean Corpuscular Hgb 30.3 pg (27.0-32.0); Mean Corpuscular Volume 91.6 fL (81-99); Mean Platelet Vol. 11.7 fl (6.2-12.0); Platelet Count 148 K/mm3 (150-450); RBC Distribution Width CV 12.5 % (11.6-14.6); RBC Distribution Width SD 41.9 fl (35.1-43.9); Red Blood Count 4.03 M/mm3 (4.2-5.4)
[2019-08-23 06:53] LABS: Creatinine, Serum 0.68 mg/dL (0.55-1.02); EST Glomerular Filtration Rate 104 mL/min (>60); Est Glom Filt Rate - Afr Amer 126 mL/min (>60); Estimated Creatinine Clearance 98.76 ml/min
[2019-08-23 07:36] VITALS: O2SAT 96
[2019-08-23 08:20] VITALS: BP 116/78; PULSE 78; RESP 16; TEMP 36.8; O2SAT 95
--- NOTE | 2019-08-23 08:41 | PN.OBGYN_ITS ---
Subjective: Patient without complaints. Tolerating diet. Minimal vaginal bleeding. Pain well controlled. - Physical Exam Vitals/I&O's: Vital Signs Temp Pulse Resp BP Pulse Ox 98.1 F 67 16 108/66 97 08/23/19 02:45 08/23/19 02:45 08/23/19 02:45 08/23/19 02:45 08/23/19 02:45 Oxygen Delivery Method Room Air Weight: 165 lb Body Mass Index (BMI) 28.3 Intake and Output for Last 24 Hours 08/21/19 08/22/19 08/23/19 23:59 23:59 23:59 Intake Total 2119.17 / 2663.17 994 / 994 Output Total 540 / 2440 2300 / 2300 Balance 1579.17 / 223.17 -1306 / -1306 Comment: Wound CDI. Good urine output. Hemoglobin and creatinine okay. Laboratory Results 08/23/19 06:20: WBC 11.0, RBC 4.03 L, Hgb 12.2, Hct 36.9 L, MCV 91.6, MCH 30.3, MCHC 33.1, RDW Std Deviation 41.9, RDW Coeff of Maya 12.5, Plt Count 148 L, MPV 11.7 08/23/19 06:20: Creatinine 0.68, Estim Creat Clear Calc 98.76, Est GFR (MDRD) Af Amer 126, Est GFR (MDRD) Non-Af 104 Current Medications Acetaminophen (Tylenol) 1,000 mg PO Q8H PRN PRN PRN Reason: Pain Score 1-3/10 or Fever Last Admin: 08/23/19 06:16 Dose: 1,000 mg Documented by: Docusate Sodium (Colace) 100 mg PO BID PRN PRN PRN Reason: Constipation Fluoxetine HCl (Prozac) 10 mg PO DAILY ILANA Last Admin: 08/22/19 12:11 Dose: 10 mg Documented by: Hydromorphone HCl (Dilaudid Inj) 0.5 mg IV Q3H PRN PRN PRN Reason: 4-10/10 Ketorolac Tromethamine (Toradol) 10 mg PO Q6H ILANA Linaclotide (Linzess) 145 mcg PO DAILY COUNTS INCLUDE 234 BEDS AT THE [facility] Ondansetron HCl (Zofran) 4 mg IV Q4H PRN PRN PRN Reason: NAUSEA Last Admin: 08/22/19 14:38 Dose: 4 mg Documented by: Oxycodone HCl (Oxyir) 5 mg PO Q4H PRN PRN PRN Reason: Pain Score 4-10/10 Last Admin: 08/23/19 00:45 Dose: 5 mg Documented by: Pantoprazole Sodium (Protonix) 20 mg PO [facility] Last Admin: 08/22/19 21:06 Dose: 20 mg Documented by: Simethicone (Mylicon) 80 mg PO [facility] Last Admin: 08/22/19 21:05 Dose: 80 mg Documented by: Sodium Chloride () 10 - 40 ml IV UD PRN PRN Reason: SALINE FLUSH Last Admin: 08/23/19 02:42 Dose: 20 ml Documented by: Medical Necessity - Tobacco Use Smoking Status: Former smoker Tobacco Use: Non-smoker Assessment/Plan All Active Problems (Last Updated 11/23/18 @ 16:05 by Delmi Espinoza, LOGISTICS OPERATIONS DIRECTOR-C) Uterine fibroid (Acute) Depression (Acute) C. difficile colitis (Acute) Hypokalemia (Acute) Doing well postoperative day #1 status post robotic assisted vaginal hysterectomy and bilateral salpingectomy. Will release to home later today if tolerating diet well and able to void on own.
[2019-08-23] MEDS: Ketorolac 10 MG Tablet PO (08:54)
[2019-08-23] MEDS: FLUoxetine 10 MG Capsule PO (08:54)
[2019-08-23] MEDS: Linacolotide 145 MCG CAPSULE PO (08:55)
[2019-08-23 11:00] VITALS: BP 109/69; PULSE 68; RESP 16; TEMP 36.8; O2SAT 95
== END 2019-08-23 11:20 | disposition home or self-care (01) ==
LOC: SDC 05:48 → AC 05:49 → MS3 08-23 09:40
PROVIDERS: Anesthesiology; PCP Family Medicine; Referring Provider Obstetrics & Gynecology; Visit Provider Obstetrics & Gynecology
PROC: 0UT90ZZ Resection of Uterus, Open Approach (ICD-10-PCS; CPT 49329; principal; 2019-08-22 07:10)
DX: D25.0 Submucous leiomyoma of uterus (principal); N92.0 Excessive and frequent menstruation with regular cycle; N94.10 Unspecified dyspareunia; K66.0 Peritoneal adhesions (postprocedural) (postinfection); K21.9 Gastro-esophageal reflux disease without esophagitis; K58.1 Irritable bowel syndrome with constipation; F32.9 Major depressive disorder, single episode, unspecified; F41.9 Anxiety disorder, unspecified; Z87.891 Personal history of nicotine dependence
CPT/HCPCS: 00840; 49329; 58552; S2900; 36415; 80076; 81025; 82565; 84703; 85027; 85610; 85730; 86850; 86900; 86901; 88307; 99251; J7120; A4216; G0463; J2405

== ENCOUNTER → 2020-12-28 08:39 | Outpatient (CLI) | payer BC, SELFPAY ==
[2019-08-22 11:44] VITALS: BMI 28.3
--- NOTE | 2020-12-28 08:42 | US_ITS ---
STUDY: ABDOMINAL ULTRASOUND - RIGHT UPPER QUADRANT REASON FOR VISIT: Female, 35 years old GERD TECHNIQUE: Ultrasound evaluation of the right upper quadrant was performed with real-time and static bryan-scale imaging. TECHNICAL QUALITY: Adequate. COMPARISON: Comparison is made with prior sonogram dated 09/09/2018. FINDINGS: Liver: The liver measures 14.9 cm. There is normal echogenicity of the liver. The bile ducts are within normal limits. There is hepatic color flow. The direction of portal flow is hepatopetal. There is no demonstrated mass lesion. Gallbladder: Normal distended gallbladder. The gallbladder wall measures 3 mm. There is a negative sonographic Mitchell''s sign. There is no pericholecystic fluid. There are no gallstones. Common Bile Duct (C.B.D.): The common bile duct measures 4 mm. Pancreas: Normal size of the head, body and tail of the pancreas. There is normal echogenicity of the pancreas. There is no demonstrated pancreatic mass or cyst. Right Kidney: Normal size of the right kidney. The right kidney measures 10.9 cm x 4.4 cm x 4.3 cm. Normal renal cortex. The right cortex measures 1.3 cm. There is a 1 cm x 0.9 cm x 0.9 cm renal cyst. There is no right hydronephrosis. US/Gallbladder IMPRESSION: 1 cm x 0.9 cm x 0.9 cm renal cyst. Electronically Signed: Umesh Garcia MD at 13:15 EDT , Service support ,
== END ==
PROVIDERS: PCP Family Medicine; Referring Provider Nurse Practitioner; Visit Provider Nurse Practitioner
DX: K21.9 Gastro-esophageal reflux disease without esophagitis (principal)
CPT/HCPCS: 76705

== ENCOUNTER → 2021-02-27 10:21 | Outpatient (CLI) | payer BC, SELFPAY ==
[2019-08-22 11:44] VITALS: BMI 28.3
[2021-02-27 12:24] LABS: CRP < 2.90 mg/L (0.0-3.0)
[2021-02-28 14:09] LABS: Endomysial Antibody IgA Negative (Negative)
[2021-02-28 16:39] LABS: Immunoglobulin A 89 mg/dL (87-352); t-Transglutaminase IgA <2 U/mL (0-3)
== END ==
PROVIDERS: PCP Nurse Practitioner; Referring Provider Internal Medicine Gastroenterology; Visit Provider Internal Medicine Gastroenterology
DX: R10.9 Unspecified abdominal pain (principal)
CPT/HCPCS: 36415; 82784; 83516; 86140; 86255

== ENCOUNTER → 2021-03-18 | Outpatient (CLI) | payer BC, SELFPAY ==
--- NOTE | 2021-03-18 12:20 | COLBX_PTH ---
PATIENT: DAYAN RADER LOC: [facility] U#:[id number] AGE/SX: 35/F ROOM: RE03/18/[address]: Dr. Blake Hill MD : 1985 BED: DIS: 03/18/2021 SPEC #: [id number] RECD: 03/18/21 15:03 STATUS: LYLY CASTRO #: [id number] CYNTHIA: 03/18/21 12:[address]: Blake Hill DEPT: SURGICAL PATHOLOGY RECD BY: Padmini Daigle ENTERED: 03/19/21 07:50 SP TYPE: COLON BX OTHR DR: Yanci Weaver, [employer] [facility] Tissues: A - Ileum, NOS B - COLON BIOPSY Procedures: Surgery Specimen Level IV HEADER OPERATION: Colonoscopy PRE-OP DIAGNOSIS: Irritable bowel syndrome with constipation, nausea and vomiting TISSUE SUBMITTED: A - Terminal ileum, rule out Crohn?s, B - Right and left colon, rule out microscopic colitis MICROSCOPIC DIAGNOSIS A. Terminal ileum, biopsy: Fragments of small intestinal mucosa, no pathologic diagnosis. B. Right and left colon, biopsy: Fragments of colonic mucosa, no pathologic diagnosis. See comment. JOSE:yuriy 03/20/2021 COMMENT Correlation with clinical, endoscopic findings and appropriate follow up are necessary. MICROSCOPIC DESCRIPTION Slides are reviewed. GROSS DESCRIPTION A - Received in fixative is one container labeled with the patient's name and designated terminal ileum. The specimen consists of two irregular fragments of light gunderson soft tissue that in aggregate measure 0.5 x 0.3 x 0.1 cm. The specimen is totally submitted in one cassette. B - Received in fixative is one container labeled with the patient's name and designated right and left colon. The specimen consists of multiple irregular fragments of light gunderson soft tissue that in aggregate measure 2 x 0.5 x 0.1 cm. The specimen is totally submitted in one cassette. / JOSE:yuriy 03/19/21 TC:5 CPT: 80556 x2
== END | disposition home or self-care (01) ==
LOC: LABSPEC 16:00
PROVIDERS: PCP Nurse Practitioner; Referring Provider Internal Medicine Gastroenterology; Visit Provider Internal Medicine Gastroenterology
DX: K58.1 Irritable bowel syndrome with constipation (principal); R11.2 Nausea with vomiting, unspecified
CPT/HCPCS: 88305

== ENCOUNTER → 2021-04-15 12:50 | Outpatient (CLI) | payer BC, SELFPAY ==
--- NOTE | 2021-04-15 12:53 | RAD_ITS ---
INDICATION: COUGH EXAMINATION/TECHNIQUE: X-RAY - XR Chest 2 Views COMPARISON: None. FINDINGS: The lungs are clear. The cardiomediastinal silhouette is unremarkable. No pleural effusion or pneumothorax. No acute osseous abnormalities. RAD/Chest PA and Lateral IMPRESSION: No acute radiographic abnormalities. Electronically Signed: Joshua Wang MD at 23:34 EDT Tel , Service support ,
== END ==
PROVIDERS: PCP Nurse Practitioner; Referring Provider Nurse Practitioner; Visit Provider Nurse Practitioner
DX: R05 Cough (principal)
CPT/HCPCS: 71046